=== PATIENT | male | born 1970 | race Caucasian/White ===

== ENCOUNTER 2021-10-31 09:10 | Observation (INO) | payer OTHER, SELFPAY ==
[2021-10-31] VITALS (10 sets, daily range): BP systolic 124–152; BP diastolic 91–106; PULSE 97–114; RESP 16–20; TEMP 36.4–37.1; O2SAT 94–98; BMI 26.2; BMI 24.2
--- NOTE | 2021-10-31 09:39 | CT_ITS ---
STUDY: CTA CHEST REASON FOR EXAM: Male, 51 years old. Dyspna, high risk PE RADIATION DOSAGE (If Supplied By Facility): CTDIvol = ( 11.42 ) mGy, DLP = ( 427.35 ) mGycm TECHNIQUE: The examination was performed with the intravenous administration of IV 100mL Isovue-370. Post-processing of the angiographic images was performed, with multiplanar reformation and 3D reconstruction. Individualized dose optimization techniques were used for this CT. COMPARISON: None. FINDINGS: There is evidence of a multiple bilateral pulmonary emboli involving the distal portions of both the right and left pulmonary arteries with a saddle embolus. Multiple emboli are seen in branches of both the right and upper lobe pulmonary arterial branches. Normal thoracic aorta and visualized great vessels. There is no demonstrated aortic dissection. Normal heart and pericardium. Normal mediastinum. Normal hilar regions. Normal visualized trachea and bronchi. The lungs are well expanded. Normal pulmonary parenchyma. Normal pleura. Normal chest wall structures. Normal osseous structures. Normal visualized upper abdomen. CT/CTA Chest W/WO Contrast IMPRESSION: Extensive bilateral pulmonary arterial emboli as described. This also evidence of a saddle embolus. Electronically Signed: Luis Burton MD at 12:06 EDT ,
--- NOTE | 2021-10-31 09:39 | EKG12_ITS ---
Test Reason : sob Blood Pressure : / mmHG Vent. Rate : 106 BPM Atrial Rate : 106 BPM P-R Int : 134 ms QRS Dur : 082 ms QT Int : 350 ms P-R-T Axes : 072 -20 040 degrees QTc Int : 464 ms Sinus tachycardia Otherwise normal ECG Confirmed by KAREEM RAMIREZ, ROSCOE ([id number]), purchasing expeditor MARTHA TOUSSAINT ([id number]) on 11/01/2021 11:34:55 AM Referred By: Confirmed By:ROSCOE SERNA MD
--- NOTE | 2021-10-31 09:41 | EDS_ITS ---
HPI History of Present Illness Chief Complaint: Shortness of Breath Informant: patient Narrative Narrative: Patient is a 51-year-old male who denies any past medical history but does not have any routine medical care presenting for worsening shortness of breath and dyspnea on exertion. Patient states he has been having some mild shortness of breath for the past month or so. He feels that it became worse over the past few days with increase humidity. 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 He had to sit down because of his symptoms. Denies any associated chest pain or pressure. Denies any nausea or vomiting. He also reports that about 2 months ago he had an episode of feeling like his heart was racing and his hands were numb. He states it occurred after he got a large amount of UV ink on his hands is not sure if that is related. Does have a history of tobacco use and actually quit 5 to 6 weeks ago. Denies any swelling of his legs. Denies any history of DVT or PE. Does not take any medications on a regular basis. Denies any other complaints or concerns at this time. Denies any orthopnea at night. States he sleeps like a rock. Denies any abnormal sweating. Has had an unintentional weight loss over the past few months. PFSH PFS Medical History Non-smoker Home Medications NK 10/31/21 [History Last Taken Unknown] Allergy/AdvReac Type Severity Reaction Status Date / Time No Known Allergies Allergy Verified 04/10/17 15:51 Social History Smoking Status: Former smoker ROS [facility] ED Constitutional Constitutional ED: Reports weight loss; Denies chills or fever(s) Eyes Eyes: Denies blurry vision or change in vision ENT ENT ED: Denies sore throat Cardiovascular Cardiovascular: Reports palpitations; Denies chest pain, orthopnea or paroxysmal nocturnal dyspnea Respiratory/Chest Respiratory/Chest: Reports dyspnea and dyspnea on exertion; Denies cough, orthopnea, paroxysmal nocturnal dyspnea or sputum Gastrointestinal Gastrointestinal: Denies abdominal pain, nausea or vomiting Genitourinary Genitourinary ED: Denies dysuria or hematuria Musculoskeletal Musculoskeletal: Denies arthralgias or myalgias Integumentary Denies rash Neurologic Neurologic: Reports weakness; Denies headache(s) or paresthesias Psychiatric Psychiatric: Denies anxiety EXAM Physical Exam Const Vital Signs: 10/31/21 09:10 10/31/21 10:17 10/31/21 11:10 Temperature 98.7 F Temperature Source Temporal Pulse Rate 114 H 97 Respiratory Rate 16 16 Respiratory Effort Non-Labored Short of Breath Respiratory Pattern Normal Blood Pressure 149/94 H Blood Pressure Mean 112 Pulse Ox 96 96 Oxygen Delivery Method Room Air Room Air Room Air 10/31/21 11:17 Temperature Temperature Source Pulse Rate 104 H Respiratory Rate 17 Respiratory Effort Respiratory Pattern Blood Pressure 146/106 H Blood Pressure Mean 119 Pulse Ox 95 Oxygen Delivery Method Room Air Positive well nourished and well developed General Appearance ED: well developed and NAD; Negative for pallor HEENT atraumatic Eyes PERRL and EOMs intact bilaterally Neck no lymphadenopathy, supple and no JVD Resp normal respiratory effort and clear to auscultation bilaterally Auscultation: Negative for rhonchi or wheezes Cardio regular rhythm and no murmurs Rate: tachycardic GI non-tender and non-distended Auscultation: normoactive bowel sounds Back/Spine no CVA tenderness Extremity normal to inspection General Extremety ED: Negative for edema or tenderness General Extremity: Negative for edema Neuro oriented x3 and CN's II-XII intact bilaterally Neuro Narrative: No focal deficits Motor Exam: Negative for general weakness Psych mental status grossly normal Skin no wounds General Skin Exam: Negative for jaundice or pallor MDM MDM MDM Narrative Medical decision making narrative: Patient is evaluated for dyspnea on exertion shortness of breath. He is tachycardic in the emergency room. Differentials concerning for pulmonary emboli, cardiac cause of his symptoms and less likely infectious. Patient has a normal CBC. BMP unremarkable. His hesitancy troponin is elevated at 262. He is not having acute ischemic changes on his EKG. His BNP is normal at 72 and his TSH is mildly elevated at 5.68. Patient is found to have extensive bilateral pulmonary emboli with a component of a saddle emboli. He is not requiring any supplemental oxygen and is hemodynamically stable. He is given IV fluids in the emergency room. Case is discussed with Dr. Fan, pulmonology, who feels that likely he is stable to stay at [facility]. Patient started on a heparin drip. I suspect his bump in his troponin is secondary to the PE and not primarily cardiac. There are no signs of heart strain on the CTA. Nain suárez will be admitted to the medicine service. I did add on venous duplex ultrasound looking for source of the PE. Patient then goes on to mention that he had a vieyra splint in his left leg about a month ago but he felt that that had improved. Venous duplex is positive for DVT in the left lower extremity. Lab Data Attestation: I reviewed the patient's lab results. Labs: Laboratory Results - last 24 hr 10/31/21 10/31/21 10/31/21 10:01 10:01 10:01 WBC 6.8 RBC 3.34 L Hgb 13.5 Hct 37.9 L MCV 113.5 H MCH 40.4 H MCHC 35.6 RDW Std Deviation 67.2 H RDW Coeff of Jefry 15.9 H Plt Count 207 MPV 9.9 Immature Gran % (Auto) 0.300 Neut % (Auto) 79.0 H Lymph % (Auto) 13.3 L [place] % (Auto) 5.6 Eos % (Auto) 1.2 Baso % (Auto) 0.6 Absolute Neuts (auto) 5.4 Absolute Lymphs (auto) 0.90 Nucleated RBC % 0 Platelet Estimate ADEQUATE RBC Morphology N CHROM Anisocytosis 1+ PT INR APTT Sodium 138 Potassium 3.9 Chloride 105 Carbon Dioxide 25.0 Anion Gap 8 BUN 19 H Creatinine 1.05 Estim Creat Clear Calc 103.33 Est GFR (MDRD) Af Amer 96 Est GFR (MDRD) Non-Af 79 BUN/Creatinine Ratio 18.1 Glucose 114 H Calcium 9.3 Troponin I High Sens 262 H* B-Natriuretic Peptide 72.1 TSH 5.68 H 10/31/21 11:23 WBC RBC Hgb Hct MCV MCH MCHC RDW Std Deviation RDW Coeff of Jefry Plt Count MPV Immature Gran % (Auto) Neut % (Auto) Lymph % (Auto) [place] % (Auto) Eos % (Auto) Baso % (Auto) Absolute Neuts (auto) Absolute Lymphs (auto) Nucleated RBC % Platelet Estimate RBC Morphology Anisocytosis PT 13.6 INR 1.1 APTT 28.8 Sodium Potassium Chloride Carbon Dioxide Anion Gap BUN Creatinine Estim Creat Clear Calc Est GFR (MDRD) Af Amer Est GFR (MDRD) Non-Af BUN/Creatinine Ratio Glucose Calcium Troponin I High Sens B-Natriuretic Peptide TSH Radiography Diagnostic Testing: Clinical Impression(s) from Imaging Studies Chest CTA 10/31/21 09:39 IMPRESSION: Extensive bilateral pulmonary arterial emboli as described. This also evidence of a saddle embolus. Electronically Signed: Luis Burton MD at 12:06 EDT , Venous Doppler Study 10/31/21 12:20 Interpretation Summary Acute deep vein thrombosis is noted in the left distal femoral vein. Acute deep vein thrombosis is noted in the left popliteal vein. Acute deep vein thrombosis is noted in the left tibio-peroneal trunk. Acute deep vein thrombosis is noted in the left posterior tibial vein. The remainder of the left lower extremity deep venous system is patent and compressible. Deep veins in the right lower extremity are patent and compressible. There is no evidence of right lower extremity deep vein thrombosis. Valvular competence appears intact within the proximal deep venous system on the right. The great saphenous veins are patent and compressible bilaterally. Pulsatile flow is noted in the deep venous system bilaterally, which may be indicative of elevated central venous pressure (i.e. congestive heart failure, pulmonary hypertension, etc.). Clinical correlation is advised. Ordering Physician: Kathleen Zambrano Performed By: Cyril Day, RVT Rhythm Strip Rhythm Strip: Sinus Tach Rate: 106 Ectopy: None EKG Initial EKG: Attestation: I personally reviewed and interpreted this EKG as follows: Interpretation: Sinus Tachycardia Comments: Sinus tachycardia at a rate of 106 Normal axis Normal intervals Normal ST segments Prior: No Prior Critical Care Time Critical Care Time: Yes Critical care time (excluding procedures): 30-74 minutes, Discussing w/Patient &/or Family/Water Service Dispatcher, Discussing w/Consultants and Arranging Admission or Transfer Discharge Plan Dx/Rx/DC Orders Clinical Impression: Pulmonary embolism, Acute saddle pulmonary embolism, Non-ST elevation MN (NSTEMI), Tachycardia, Left leg DVT Disposition Disposition: Acute Care [facility]
[2021-10-31 10:18] LABS: Absolute Neutrophil Count 5.4 X10^3/uL (2.0-7.7); Basophil# 0.04 X10^3/uL; Basophil% 0.6 % (0-1); Eosinophil# 0.08 X10^3/uL; Eosinophils% 1.2 % (0-5); Hematocrit 37.9 % (40-54); Hemoglobin 13.5 g/dL (13.0-16.5); Lymphocyte % 13.3 % (19-41); Mean Corp Hgb Conc 35.6 g/dL (32-36); Mean Corpuscular Hgb 40.4 pg (27.0-32.0); Mean Corpuscular Volume 113.5 fL (80-94); Mean Platelet Vol. 9.9 fl (6.2-12.0); Monocyte# 0.38 X10^3/uL; Monocyte% 5.6 % (0-10); NRBC Flagged by Analyzer 0 % (0-5); Neutrophil # 5.36 X10^3/uL (2.7-7.7); POSITIVE MORPHOLOGY YES; Platelet Count 207 K/mm3 (150-450); RBC Distribution Width CV 15.9 % (11.6-14.6); RBC Distribution Width SD 67.2 fl (35.1-43.9); Red Blood Count 3.34 M/mm3 (4.6-6.2); White Blood Count 6.8 K/mm3 (4.4-11.0)
[2021-10-31] MEDS: 0.9% Normal Saline 1,000 ML 1000 ML IV (10:18)
[2021-10-31 10:26] LABS: Differential Indicated SCAN CRITERIA MET
[2021-10-31 10:42] LABS: Anion Gap 8 (5-15); BUN 19 mg/dL (7-18); BUN/Creat Ratio 18.1 RATIO (10-20); Calcium,Total 9.3 mg/dL (8.5-10.1); Chloride 105 mmol/L (98-107); Creatinine, Serum 1.05 mg/dL (0.70-1.30); EST Glomerular Filtration Rate 79 mL/min (>60); Est Glom Filt Rate - Afr Amer 96 mL/min (>60); Estimated Creatinine Clearance 103.33 ml/min; Glucose 114 mg/dL (74-106); Potassium 3.9 mmol/L (3.5-5.1); Sodium Level 138 mmol/L (136-145); Thyroid Stim Hormone (TSH) 5.68 uIU/mL (0.358-3.74); Troponin-I HS 262 pg/mL (3.0-78.0)
[2021-10-31] MEDS: Aspirin 325 MG Tablet PO (11:17)
[2021-10-31 11:21] LABS: Anisocytosis 1+; Platelet Estimate ADEQUATE (ADEQ); Red Cell Morphology N CHROM NORMAL (NORM C&C)
[2021-10-31] MEDS: Heparin Injection (Vial) 5,000 UNIT/ML VIAL 4000 UNIT IV (11:32)
[2021-10-31] MEDS: HEPARIN/D5w 25,000 UNITS 25,000 UNITS/250 ML IV.SOLN. 10 UNITS CONT INF (11:33)
[2021-10-31 11:40] LABS: International Normalized Ratio 1.1; Partial Thromboplast Time 28.8 Seconds (24.1-36.2); Prothrombin Time (Protime)PT. 13.6 SECONDS (11.7-14.9)
[2021-10-31 12:02] LABS: BNP,B-Type NATRIURETIC PEPTIDE 72.1 pg/mL (0-100)
--- NOTE | 2021-10-31 12:20 | VDLE_ITS ---
Reason For Study: PE RIGHT LEFT GSV is normal. GSV is normal. CFV is compressible, spontaneous, competent CFV is compressible, spontaneous, competent, and demonstrates pulsatile venous flow. and demonstrates pulsatile venous flow. FV is compressible, spontaneous, competent LT PerV is compressible. and demonstrates pulsatile venous flow. Prox and mid FV are compressible with POP V is compressible, spontaneous, pulsatile venous flow. Distal FV is dilated competent and demonstrates pulsatile venous and noncompressible. DVT appears loosley flow. attached, T/P Trunk is compressible. POP V, T/P Trunk, and PTV are dilated and PTV is compressible. noncompressible. RT PerV is compressible. Procedure This is a venous duplex using B-mode, color flow and spectral Doppler. Exam performed portable in ED. The exam was diagnostic. A preliminary report was called and/or faxed to Dr. Zambrano. VL/Venous Duplex US - [place] Extrem Interpretation Summary Acute deep vein thrombosis is noted in the left distal femoral vein. Acute deep vein thrombosis is noted in the left popliteal vein. Acute deep vein thrombosis is noted in the le ft tibio-peroneal trunk. Acute deep vein thrombosis is noted in the left posterior tibial vein. T he remainder of the left lower extremity deep venous system is patent and compressible. Deep veins in the right lower extremity are patent and compressible. There is no evidence of right lower extr emity deep vein thrombosis. Valvular competence appears intact within the proximal deep venous system on the right. The great saphenous veins are patent and compressible bilaterally. Pulsatile fl ow is noted in the deep venous system bilaterally, which may be indicative of elevated central dhiraj ous pressure (i.e. congestive heart failure, pulmonary hypertension, etc.). Clinical correlation i s advised. Ordering Physician: Kathleen Zambrano Performed By: Barb, Cyril, RVT
--- NOTE | 2021-10-31 12:50 | HP.PCM.HOS_ITS ---
HPI - General General Date of Admission: 10/31/21 Date of Service: 10/31/21 Chief Complaint: shortness of breath HPI Narrative ASHLEY KELLEY, is a 51 M with a PMh as outlined who presents via the ED with a PMh as outlined who was admitted via the ED on 10/31/2021 with a complaint of worsening shortness of breath which worsened with exertion. This had been going on for about a month, but worsened over the last few days, until today when he ws at work and became acutely short of breath, weak and dizzy. He had to stop working, and came in to the ED. He denied any chest pain or pressure. He also denied any nausea or vomiting. He denied any history fo DVT or PE, and denied any lower extremity swelling. He subsequently admitted to having some vieyra splints about a month ago. Review of systems is otherwise negative. Vitals in the ED were BP of 146/106, WA of 106, RR of 17 and he was saturating at 955 on room air. CBC showed Hb of 13.5, wbc of 6.8, platelets of 207 and INR is 1.1. Chemistry showed sodium of 138, potassium of 3.9 and bicarb of 25. CR is 1.05. Troponin is 262. TSH is 5.68. CTA showed extensive bilateral pulmonary art erial emboli, with evidence of saddle emboli. [facility] Medical History Non-smoker Home Medications NK 10/31/21 [History Last Taken Unknown] Allergy/AdvReac Type Severity Reaction Status Date / Time No Known Allergies Allergy Verified 04/10/17 15:51 Social History Smoking Status: Former smoker ROS Constitutional Constitutional: Denies anorexia, chills, fatigue, fever(s), malaise or weakness Eyes Eyes: Denies change in vision ENT HEENT: Denies dysphagia, headache(s) or nasal discharge Cardiovascular Cardiovascular: Reports dyspnea on exertion; Denies chest pain, edema, lightheadedness, orthopnea, palpitations, paroxysmal nocturnal dyspnea, rapid heart rate or syncope Respiratory/Chest Respiratory/Chest: Reports dyspnea, shortness of breath at rest and shortness of breath with exertion; Denies cough or wheezing Gastrointestinal Gastrointestinal: Denies abdominal pain, constipation, nausea or vomiting Genitourinary Genitourinary: Denies dysuria Musculoskeletal Musculoskeletal: Denies back pain or joint pain Neurologic Neurologic: Denies confusion, dizziness, focal weakness, headache(s), numbness, seizures or syncope Psychiatric Psychiatric: Denies anxiety or depression Vital Signs Vital Signs Vital Signs: 10/31/21 09:10 10/31/21 10:17 10/31/21 11:10 Temperature 98.7 F Temperature Source Temporal Pulse Rate 114 H 97 Respiratory Rate 16 16 Respiratory Effort Non-Labored Short of Breath Respiratory Pattern Normal Blood Pressure 149/94 H Blood Pressure Mean 112 Pulse Ox 96 96 Oxygen Delivery Method Room Air Room Air Room Air 10/31/21 11:17 Temperature Temperature Source Pulse Rate 104 H Respiratory Rate 17 Respiratory Effort Respiratory Pattern Blood Pressure 146/106 H Blood Pressure Mean 119 Pulse Ox 95 Oxygen Delivery Method Room Air Weight Weight: 215 lb Body Mass Index (BMI) 26.2 Physical Exam Const alert, oriented x3 and no apparent distress HEENT normocephalic, head/scalp atraumatic, hearing grossly normal bilaterally and moist oral mucous membranes Mouth: oral and palatal mucosa normal Eyes PERRL and EOMs intact bilaterally Neck supple Resp normal respiratory effort, no retractions, no use of accessory muscles and clear to auscultation bilaterally Cardio regular rate, regular rhythm, S1 normal heart sound, S2 normal heart sound and no murmurs GI normal to inspection, nondistended, normoactive bowel sounds, soft to palpation, non-tender and non-distended Extremity normal to inspection, full ROM and no clubbing, cyanosis or edema Neuro oriented x3, CN's II-XII intact bilaterally and moves all extremities Sensorium / Orientation: awake and alert Psych affect normal Results Lab / Micro Data Result Diagrams: 10/31/21 10:01 10/31/21 10:01 Labs: Laboratory Results - last 24 hr 10/31/21 10:01: WBC 6.8, RBC 3.34 L, Hgb 13.5, Hct 37.9 L, MCV 113.5 H, MCH 40.4 H, MCHC 35.6, RDW Std Deviation 67.2 H, RDW Coeff of Jefry 15.9 H, Plt Count 207, MPV 9.9, Immature Gran % (Auto) 0.300, Neut % (Auto) 79.0 H, Lymph % (Auto) 13.3 L, [place] % (Auto) 5.6, Eos % (Auto) 1.2, Baso % (Auto) 0.6, Absolute Neuts (auto) 5.4, Absolute Lymphs (auto) 0.90, Nucleated RBC % 0, Platelet Estimate ADEQUATE, RBC Morphology N CHROM, Anisocytosis 1+ 10/31/21 10:01: Sodium 138, Potassium 3.9, Chloride 105, Carbon Dioxide 25.0, Anion Gap 8, BUN 19 H, Creatinine 1.05, Estim Creat Clear Calc 103.33, Est GFR (MDRD) Af Amer 96, Est GFR (MDRD) Non-Af 79, BUN/Creatinine Ratio 18.1, Glucose 114 H, Calcium 9.3, Troponin I High Sens 262 H*, TSH 5.68 H 10/31/21 10:01: B-Natriuretic Peptide 72.1 10/31/21 11:23: PT 13.6, INR 1.1, APTT 28.8 Radiology Impression Chest CTA 10/31/21 09:39 IMPRESSION: Extensive bilateral pulmonary arterial emboli as described. This also evidence of a saddle embolus. Electronically Signed: Luis Burton MD at 12:06 EDT , Assessment & Plan Assessment/Plan (1) Pulmonary embolism: PLAN: Plan #Submassive Bilateral saddle PE * admit to PCU * patient is tachycardic, but not tachypneic. He is on room air * initial troponin is 262; will cucle. BMP not elevated. * started on heparin drip; will continue * will order 2D echo * consult pulmonology * duplex of LE showed DVT * says he has lost ~ 20 pounds unintentionally. Hasnt had a screening colo noscopy. Counseled that he will have to follow up with his PCP for age appropriate screening in light of his extensive PE. * #DVT: management as above #Elevated TSH * TSH elevated at 5.68. No known history of hypothyroidism * will check free T4 DVT prophylaxis; not indicated as on heparin drip for PE Code status: full code * Patient counseled extensively about different types of CODE STATUS including full code, DNR CCA and DNR CCA. Patient elects to be full code. Total [id number] time 17 minutes. * Upon my entry into the ED room to see patient and my introducing myself, patient stated that he did not want me to take care of him and requested for another doctor. I asked if there was a particular reason why and he stated that his mother had been under my care for management for COVID recently and he felt there was a huge mixup in her care and so did not want me to take care of him. I explained to patient that the hospitalist took turns to admit the patient's and so it would not be fair for me to give my colleagues another admission. I suggested to patient that I evaluated him for today and do the history and physical and from tomorrow one of my hospitalist colleagues will hopefully take over his care. Patient was agreeable to the suggestion and is okay with being seen by me today, for another hospitalist to take over from tomorrow. I spoke to Dr. Garcia who will assume the care of the patient from tomorrow 11/01/2021. Charges/Coding Visit Charges Inpatient E&M: 80645 Init Hosp L3 Procedures Hospitalists Procedures: 94157 Advncd Care Plan 30 Min
--- NOTE | 2021-10-31 14:25 | ECHOD_ITS ---
Reason For Study: EMBOLI Procedure This was a 2D Doppler, Color Flow transthoracic echocardiogram. Exam performed portable in patient room. Left Ventricle Normal LV size. Moderate eccentric left ventricular hypertrophy. D shaped septum in systole and diastole. Left ventricular systolic function is normal. The estimated ejection fraction is 55 %. No regional wall motion abnormalities noted. Right Ventricle Mildly dilated right ventricle. Mild to moderate global right ventricular systolic dysfunction. Aortic Valve Trisinus/trileaflet aortic valve. Great Vessels Normal aortic root. The pulmonary artery is normal size. Normal inferior vena cava. Pericardium/Pleural No pericardial effusion. MMode/2D Measurements & Calculations LVIDd: 4.2 cm IVSd: 1.6 cm Ao root diam: 3.4 cm LVIDs: 2.8 cm LVPWd: 0.93 cm RVDd: 4.4 cm FS: 34.7 % LAV(MOD-bp): 60.1 ml LVAd ap4: 29.5 cm2 LVAd ap2: 35.0 cm2 LAV(MOD-bp) Indexed: 26.8 ml/m2 LVLd ap4: 8.1 cm LVLd ap2: 9.1 cm LAV(MOD-sp2): 60.3 ml EDV(MOD-sp4): 89.8 ml EDV(MOD-sp2): 112.5 ml LAV(MOD-sp4): 62.3 ml EDV(sp4-el): 91.9 ml EDV(sp2-el): 114.9 ml LVAs ap4: 18.2 cm2 LVAs ap2: 20.6 cm2 LVLs ap4: 7.1 cm LVLs ap2: 7.5 cm ESV(MOD-sp4): 38.8 ml ESV(MOD-sp2): 50.1 ml ESV(sp4-el): 39.5 ml ESV(sp2-el): 48.3 ml EF(MOD-sp4): 56.8 % EF(MOD-sp2): 55.4 % EF(sp4-el): 57.1 % SV(MOD-sp4): 51.0 ml SV(MOD-sp2): 62.4 ml SV(sp4-el): 52.4 ml LA A4 area: 20.0 cm2 LA dimension(2D): 3.5 cm RA A4 area: 21.8 cm2 Doppler Measurements & Calculations MV E max manuelito: 43.4 cm/sec Lat Peak E' Manuelito: 12.9 cm/sec Med Peak E' Manuelito: 7.3 cm/sec MV A max manuelito: 66.3 cm/sec E/E' lat: 3.4 E/E' med: 6.0 MV E/A: 0.65 Ao V2 max: 96.2 cm/sec LV V1 max: 85.8 cm/sec TR max manuelito: 283.1 cm/sec Ao max P.7 mmHg LV V1 max P.9 mmHg TR max P.1 mmHg ECHO/Echo Complete Interpretation Summary Normal LV size. Moderate eccentric left ventricular hypertrophy. Left ventricular systolic function is normal. The estimated ejection fraction is 55 %. D shaped septum in systole and diastole. Mildly dilated right ventricle. Ordering Physician: Ifrah Colmenares Referring Physician: JAILENE PCP GIVEN Performed By: Mariaa Dale RCS
[2021-10-31 15:03] LABS: T4 Free Direct 0.96 ng/dL (0.76-1.46)
[2021-10-31 15:36] LABS: Troponin-I HS 1055 pg/mL (3.0-78.0)
[2021-10-31 17:21] LABS: Troponin-I HS 1232 pg/mL (3.0-78.0)
[2021-10-31 17:57] LABS: Partial Thromboplast Time 39.2 Seconds (24.1-36.2)
[2021-10-31] MEDS: Heparin Injection (Vial) 5,000 UNIT/ML VIAL IV (18:52)
[2021-11-01 01:29] LABS: Partial Thromboplast Time 46.4 Seconds (24.1-36.2)
[2021-11-01 01:52] VITALS: BP 116/72; PULSE 83; RESP 18; TEMP 36.6; O2SAT 96
[2021-11-01 02:59] VITALS: PULSE 80
[2021-11-01 06:21] VITALS: BP 109/92; PULSE 80; RESP 18; TEMP 36.4; O2SAT 99
[2021-11-01 07:00] VITALS: PULSE 76
[2021-11-01 07:17] VITALS: O2SAT 96
[2021-11-01] MEDS: HEPARIN/D5w 25,000 UNITS 25,000 UNITS/250 ML IV.SOLN. 13 UNITS CONT INF (08:06)
--- NOTE | 2021-11-01 09:01 | NURSING ---
This RN called lab at 0836 to check to see if they had drawn pt's timed APTT that was due at 0751 as it was not in the computer yet. Lab personnel on phone stated they would call electric power line repairer to see if it was drawn. This RN called the lab again at 0853 to see if they had drawn it yet. Lab personnel stated that they recieved the tube in the lab and it just needed to be spun. Heparin gtt continued at 13ml/hr while awaiting lab result.
[2021-11-01 09:04] LABS: Absolute Lymphocyte Count 1.42 X10^3/uL (0.83-4.51); Absolute Neutrophil Count 3.3 X10^3/uL (2.0-7.7); Basophil# 0.05 X10^3/uL; Basophil% 0.9 % (0-1); Eosinophil# 0.21 X10^3/uL; Eosinophils% 3.9 % (0-5); Hematocrit 35.8 % (40-54); Hemoglobin 12.5 g/dL (13.0-16.5); Lymphocyte # 1.42 X10^3/ul (0.83-4.51); Lymphocyte % 26.6 % (19-41); Mean Corp Hgb Conc 34.9 g/dL (32-36); Mean Corpuscular Hgb 39.8 pg (27.0-32.0); Mean Platelet Vol. 10.3 fl (6.2-12.0); Monocyte# 0.36 X10^3/uL; Monocyte% 6.7 % (0-10); NRBC Flagged by Analyzer 0 % (0-5); Neutrophil # 3.26 X10^3/uL (2.7-7.7); Neutrophil % 61.2 % (47-70); POSITIVE MORPHOLOGY YES; Platelet Count 219 K/mm3 (150-450); RBC Distribution Width SD 67.2 fl (35.1-43.9); Red Blood Count 3.14 M/mm3 (4.6-6.2); White Blood Count 5.3 K/mm3 (4.4-11.0)
[2021-11-01 09:05] LABS: Differential Indicated SCAN CRITERIA MET
[2021-11-01 09:16] LABS: Partial Thromboplast Time 44.7 Seconds (24.1-36.2)
--- NOTE | 2021-11-01 09:24 | CON.PCM.CC_ITS ---
Assessment & Plan Assessment/Plan (1) Pulmonary embolism: PLAN: Plan RECOMMENDATIONS: 1. Okay to transition from heparin to either Xarelto or Eliquis. 2. Perform walking oximetry study prior to consideration for discharge home. 3. The patient should follow-up in the pulmonary medicine clinic after discharge. IMPRESSIONS: 1. Bilateral pulmonary emboli The patient initially presented to the hospital with progressive dyspnea and was found to have bilateral pulmonary emboli, including saddle embolism. However, the patient has remained hemodynamically stable on room air since his admission. His echocardiogram did reveal some mild to moderate RV dysfunction. At this time, given the patient's clinical stability, he can be transition from heparin to either Xarelto or Eliquis. The etiology for the patient's VTE is unclear. No precipitating etiology has been identified. The patient would likely benefit from outpatient referral to hematology. Regardless, the patient needs to be on his systemic anticoagulation for at least 3 months without interruption. Recommend follow-up echocardiogram in 2 to 3 months. This note was generated with [employer] dictation software. It may contain incorrect words, spelling, and punctuation that were not noted in checking the note before signing. HPI Consult Data Date of Consult: 11/01/21 HPI Narrative Reason for Consultation: Pulmonary emboli HPI Narrative: The patient is a 51-year-old male, with a history as outlined below, who presented to the emergency department on October 31 with a history of 1 month of progressively worsening shortness of breath. No precipitating or inciting factor was able to be identified. The patient has an approximate 1-pack-year smoking history, having quit completely previously. 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 He is active and on his feet most of the day. He denies any personal history of venous thromboembolic disease or malignancy. He has not traveled anywhere recently. On presentation to the emergency department, the patient was noted to be afebrile and hemodynamically stable. He was a, nevertheless, tachycardic with a heart rate of 114. Initial laboratory evaluation revealed no evidence of a leukocytosis. Coagulation profile was unremarkable. Chemistry profile was unrevealing. Troponins were increased at 262. BNP was within normal limits. A CTA chest was obtained which revealed extensive bilateral pulmonary emboli, including saddle embolus. Follow-up lower extremity Doppler study revealed DVT in the left lower extremity. Surface echocardiogram demonstrated moderate concentric LVH with a mildly dilated LV with mild to moderate global RV systolic dysfunction. [facility] Medical History Non-smoker Home Medications apixaban 5 mg tablet (Eliquis) 10 mg PO BID #60 tabs 11/01/21 [Rx Last Taken Unknown] Allergy/AdvReac Type Severity Reaction Status Date / Time No Known Allergies Allergy Verified 04/10/17 15:51 Social History Smoking Status: Former smoker ROS Constitutional Constitutional: Denies chills, fatigue or fever(s) Eyes Eyes: Denies blurry vision or change in vision ENT HEENT: Denies dizziness, dysphagia or epistaxis Cardiovascular Cardiovascular: Reports dyspnea; Denies chest pain Respiratory/Chest Respiratory/Chest: Reports dyspnea; Denies chest tightness or cough Gastrointestinal Gastrointestinal: Denies abdominal pain, diarrhea, nausea or vomiting Genitourinary Genitourinary: Denies difficulty urinating Musculoskeletal Musculoskeletal: Denies arthralgias, back pain or joint pain Integumentary Integumentary: Denies lesions, rash or skin ulcer Neurologic Neurologic: Denies abnormal gait or abnormal speech Psychiatric Psychiatric: Denies anxiety or depression Endocrine Endocrinology: Denies fatigue or polydipsia Hematologic/Lymphatic Hematologic/Lymphatic: Denies easy bleeding or easy bruising Physical Exam Const alert, oriented x3 and no apparent distress General Appearance: cooperative HEENT normocephalic, head/scalp atraumatic and moist oral mucous membranes Eyes PERRL, EOMs intact bilaterally and conjunctivae normal Neck supple General: trachea midline Chest inspection of chest normal Resp normal respiratory effort Auscultation: Negative for rales, rhonchi or wheezes Cardio regular rate and regular rhythm GI normal to inspection, nondistended, normoactive bowel sounds Extremity no clubbing, cyanosis or edema Skin no rashes or lesions noted Neuro CN's II-XII intact bilaterally, moves all extremities and no focal motor deficits Psych cooperative and affect normal Lab / Micro Data Result Diagrams: 11/01/21 07:50 11/01/21 07:50 Labs: Laboratory Results - last 24 hr 10/31/21 10:01: WBC 6.8, RBC 3.34 L, Hgb 13.5, Hct 37.9 L, MCV 113.5 H, MCH 40.4 H, MCHC 35.6, RDW Std Deviation 67.2 H, RDW Coeff of Jefry 15.9 H, Plt Count 207, MPV 9.9, Immature Gran % (Auto) 0.300, Neut % (Auto) 79.0 H, Lymph % (Auto) 13.3 L, [place] % (Auto) 5.6, Eos % (Auto) 1.2, Baso % (Auto) 0.6, Absolute Neuts (auto) 5.4, Absolute Lymphs (auto) 0.90, Nucleated RBC % 0, Platelet Estimate ADEQUATE, RBC Morphology N CHROM, Anisocytosis 1+ 10/31/21 10:01: Sodium 138, Potassium 3.9, Chloride 105, Carbon Dioxide 25.0, Anion Gap 8, BUN 19 H, Creatinine 1.05, Estim Creat Clear Calc 103.33, Est GFR (MDRD) Af Amer 96, Est GFR (MDRD) Non-Af 79, BUN/Creatinine Ratio 18.1, Glucose 114 H, Calcium 9.3, Troponin I High Sens 262 H*, TSH 5.68 H 10/31/21 10:01: B-Natriuretic Peptide 72.1 10/31/21 10:01: Free T4 0.96 10/31/21 11:23: PT 13.6, INR 1.1, APTT 28.8 10/31/21 15:00: Troponin I High Sens 1055 H* 10/31/21 16:35: Troponin I High Sens 1232 H* 10/31/21 17:35: APTT 39.2 H 11/01/21 01:06: APTT 46.4 H 11/01/21 07:50: WBC 5.3, RBC 3.14 L, Hgb 12.5 L, Hct 35.8 L, MCV 114.0 H, MCH 39.8 H, MCHC 34.9, RDW Std Deviation 67.2 H, RDW Coeff of Jefry 16.0 H, Plt Count 219, MPV 10.3, Immature Gran % (Auto) 0.700, Neut % (Auto) 61.2, Lymph % (Auto) 26.6, [place] % (Auto) 6.7, Eos % (Auto) 3.9, Baso % (Auto) 0.9, Absolute Neuts (auto) 3.3, Absolute Lymphs (auto) 1.42, Nucleated RBC % 0 07/26/22 07:50: APTT 44.7 H Rhythm Strip Rhythm Strip: Sinus Tach Rate: 106 Ectopy: None Radiology Impression Chest CTA 10/31/21 09:39 IMPRESSION: Extensive bilateral pulmonary arterial emboli as described. This also evidence of a saddle embolus. Electronically Signed: Luis Burton MD at 12:06 EDT , Venous Doppler Study 10/31/21 12:20 Interpretation Summary Acute deep vein thrombosis is noted in the left distal femoral vein. Acute deep vein thrombosis is noted in the left popliteal vein. Acute deep vein thrombosis is noted in the left tibio-peroneal trunk. Acute deep vein thrombosis is noted in the left posterior tibial vein. The remainder of the left lower extremity deep venous system is patent and compressible. Deep veins in the right lower extremity are patent and compressible. There is no evidence of right lower extremity deep vein thrombosis. Valvular competence appears intact within the proximal deep venous system on the right. The great saphenous veins are patent and compressible bilaterally. Pulsatile flow is noted in the deep venous system bilaterally, which may be indicative of elevated central venous pressure (i.e. congestive heart failure, pulmonary hypertension, etc.). Clinical correlation is advised. Ordering Physician: Kathleen Zambrano Performed By: Cyril Day, RVT Echocardiogram 10/31/21 14:25 Interpretation Summary Normal LV size. Moderate eccentric left ventricular hypertrophy. Left ventricular systolic function is normal. The estimated ejection fraction is 55 %. D shaped septum in systole and diastole. Mildly dilated right ventricle. Ordering Physician: Ifrah Colmenares Referring Physician: NO PCP GIVEN Performed By: Mariaa Dale RCS Charges/Coding Visit Charges Inpatient E&M: 83232 Init Hosp L3
[2021-11-01 09:26] LABS: Anisocytosis 1+
[2021-11-01 09:41] LABS: Anion Gap 4 (5-15); BUN 14 mg/dL (7-18); BUN/Creat Ratio 14.5 RATIO (10-20); Calcium,Total 8.7 mg/dL (8.5-10.1); Chloride 109 mmol/L (98-107); Creatinine, Serum 0.97 mg/dL (0.70-1.30); EST Glomerular Filtration Rate 87 mL/min (>60); Est Glom Filt Rate - Afr Amer 106 mL/min (>60); Estimated Creatinine Clearance 111.86 ml/min; Glucose 110 mg/dL (74-106); Potassium 4.1 mmol/L (3.5-5.1); Sodium Level 138 mmol/L (136-145)
[2021-11-01 10:53] VITALS: BP 140/94; PULSE 82; RESP 16; TEMP 36.7; O2SAT 97
--- NOTE | 2021-11-01 10:57 | DCINST_ITS ---
Discharge Instructions Diet Discharge Diet: No restrictions Activity Discharge Activity: Return to Normal Activity Return to work on:: 11/07/21 Weight Bearing Status: Full weight bearing Additional Activity Instructions:: Be careful operating heavy machinery or using powered saws Follow Up Care Test Results: Test results from this visit will be discussed in further detail at your follow- up appointment, if applicable. Discharge Plan Admission Admit Date/Time: 10/31/21 13:07 Primary Reason for Your Visit: Pulmonary embolism Attending Provider: John Garcia Primary Care Provider: Care Physician,No Primary Consulting Providers: Conner Metzger ; Silvio Fan ; Demetira Mares NP ; Ifrah Colmenares Instructions Additional Instructions / Restrictions: I recommend you establish care with a primary care physician and make an appointment within the next 1 month Do not take any ibuprofen or Aleve while you are on Eliquis Discharge Orders/Prescriptions Prescriptions: New Eliquis 5 mg tablet 10 mg PO BID Qty: 60 0RF Rx Instructions: 10 mg twice a day for 1 week, then 5 mg twice a day thereafter, start first dose tonight Referrals / Follow Up: Silvio Fan DO [Med Staff - Active Staff] - See Referral Note (In 2 weeks, call for an appointment) Care Physician,No Primary [Primary Care Provider] - Disposition Disposition (needs filled in before D/C Order can be placed): Home, Self Care
--- NOTE | 2021-11-01 11:26 | PHA.DC.MC ---
Pharmacy Service has performed discharge medication reconciliation and counseling for this patient. 1. APIXABAN 10MG PO BID X 7 DAYS, THEN 5MG PO BID THEREAFTER The patient's discharge medication list was reviewed for discrepancies and discrepancies were resolved. Home Medications apixaban 5 mg tablet (Eliquis) 10 mg PO BID #60 tabs 11/01/21 The patient was counseled on the following discharge medications and changes in medications for homegoing were reviewed. The Reason for Use, instructions for use, and potential side effects were reviewed for all new medications. The patient's questions regarding all of their medications were answered. The patient was able to verbally demonstrate an understanding of their discharge medications.
[2021-11-01] MEDS: APIXABAN 5 MG TABLET 10 MG PO (11:28)
[2021-11-01] MEDS: 0.9% Saline Lock 10 ML Syringe IV (11:29)
--- NOTE | 2021-11-01 11:38 | CASEMGMT ---
TALI QUARLES assessment: Face to Face with patient for initial transition planning/care coordination assessment. TALI QUARLES introduced self and role at [facility], pt voices understanding and consents to assessment. Pt is sitting up in bed in no distress on room air. Pt is A/Ox4 and answers all questions appropriately.? Care providers, pharmacy,?and demographics verified/updated. ? Presentation: Pt c/o intermittent SOB for last month or so Admitting dx: Submassive bilat PE, NSTEMI PCP: None, list provided and pt states would like to see Dr. Alexis Fan Specialists: None Preferred Pharmacy: [facility]-pt to be sent home on Eliquis and 30 day free trial card applied in [facility] pharmacy. Pt also provided with Eliquis $10 co-pay card w/ instructions, voices understanding. Pt aware that he will need PCP to write for Eliquis for next month and states plans to get appt set up. Insurance: [employer] Prescription Benefit:? [employer] Living Will/HPOA: Pt does not have LW/HPOA and declines AD info, stating 'My sister will take care of that.' LNOK: Isabelle Eng, sister Living Arrangements: Pt lives alone in split level home and states no concerns at home. Pt states is independent with ADL's. Transportation: Pt drives self and states no transportation concerns. DME/HHC: Pt has no current DME or need for any DME. Pt states no hx of HHC or SNF in past. Pt states no concerns with going home at time of discharge. 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 Pt states does not smoke cigarettes but does occasionally drink ETOH. Pt states no further concerns/needs. CM to follow for any further discharge planning/needs. Advised pt to ask for CM if any further questions/concerns/needs arise, voices understanding. Pt Goal: Home ? Plan[place]
--- NOTE | 2021-11-01 12:34 | PCM.DC.SUM ---
Providers Date of Admission: 10/31/21 Date of Discharge: 11/01/21 Primary Care Physician: Dr. Alexis Fan, DO Consultations 10/31/21 15:49 Consult: Telegraph Printer Mechanic / Pulmonary Medicine Routine Consulting Provider: [facility] Reason for Consult: bilateral PE EMERGENT Consult: No MD Notified: Yes Date Notified: 10/31/21 Time Notified: 15:49 Method of Notification: Text Reason For Visit: SUBMASSIVE BILATERAL PE Diagnosis Discharge Diagnosis (1) Pulmonary embolism: Status: Acute Code(s): I26.99 - Other pulmonary embolism without acute cor pulmonale Plan 1. Acute saddle pulmonary embolus #2 left leg venous thromboembolism Medications at Discharge Home Medications apixaban 5 mg tablet (Eliquis) 10 mg PO BID #60 tabs 11/01/21 Hospital Course Operations None Procedures 2-D Echocardiogram Summary of Care Provided Minutes Spent on Discharge: 31 Hospital Course: This 51-year-old white male was seen in the emergency room at [facility] with a chief complaint of shortness of breath on exertion, he stated the symptoms have been going on for approximately a month but they became worse over the past few days with increased humidity. Work-up in the emergency room included a CTA of the chest which showed the patient to have extensive bilateral pulmonary emboli with a component of saddle emboli. Patient was not hypoxic however and he was hemodynamically stable. Pulmonary medicine was consulted by phone, they recommended starting the patient on a heparin drip and admitting him into the hospital. A venous duplex ultrasound was carried out on the legs, there was noted to be a DVT in the left lower extremity. Patient was admitted to PCU, he underwent an echocardiogram which showed no evidence of pulmonary hypertension or heart strain, he was also seen in consultation by pulmonary medicine. Patient remained hemodynamically stable and did not require any supplemental oxygen during his admission. On 11/01/2021, patient was seen and examined: On examination he appeared in good health and spirits. Vital signs as documented. Skin warm and dry and without overt rashes. Neck without JVD, neck was supple, trachea midline, thyroid was normal. Lungs clear bilaterally, normal air movement was noted. Heart exam notable for regular rhythm, normal sounds and absence of murmurs, rubs or gallops. Abdomen unremarkable and without evidence of organomegaly, masses, or abdominal aortic enlargement. Bowel sounds are present, abdomen is not distended. Extremities nonedematous, no cyanosis was noted, no clubbing was noted. Neuro: Cranial nerves II through XII are grossly intact, no focal motor deficits were noted, sensation to light touch and pinprick intact, motor exam 5/5 throughout. Psych: Patient is alert and oriented x3, he does not appear anxious or depressed, he does not appear agitated. Patient appears stable for discharge on 11/01/2021. Weight / BMI Weight Weight: 90.2 kg Body Mass Index (BMI) 24.2 ABG / Lab / Microbiology Data Result Diagrams: 11/01/21 07:50 11/01/21 07:50 Laboratory: Laboratory Results - last 24 hr 10/31/21 10:01: Free T4 0.96 10/31/21 15:00: Troponin I High Sens 1055 H* 10/31/21 16:35: Troponin I High Sens 1232 H* 10/31/21 17:35: APTT 39.2 H 11/01/21 01:06: APTT 46.4 H 11/01/21 07:50: WBC 5.3, RBC 3.14 L, Hgb 12.5 L, Hct 35.8 L, MCV 114.0 H, MCH 39.8 H, MCHC 34.9, RDW Std Deviation 67.2 H, RDW Coeff of Jefry 16.0 H, Plt Count 219, MPV 10.3, Immature Gran % (Auto) 0.700, Neut % (Auto) 61.2, Lymph % (Auto) 26.6, [place] % (Auto) 6.7, Eos % (Auto) 3.9, Baso % (Auto) 0.9, Absolute Neuts (auto) 3.3, Absolute Lymphs (auto) 1.42, Nucleated RBC % 0, Anisocytosis 1+ 11/01/21 07:50: Sodium 138, Potassium 4.1, Chloride 109 H, Carbon Dioxide 25.0, Anion Gap 4 L, BUN 14, Creatinine 0.97, Estim Creat Clear Calc 111.86, Est GFR (MDRD) Af Amer 106, Est GFR (MDRD) Non-Af 87, BUN/Creatinine Ratio 14.5, Glucose 110 H, Calcium 8.7 11/01/21 07:50: APTT 44.7 H Radiography Diagnostic Testing: Radiology Impression Venous Doppler Study 10/31/21 12:20 Interpretation Summary Acute deep vein thrombosis is noted in the left distal femoral vein. Acute deep vein thrombosis is noted in the left popliteal vein. Acute deep vein thrombosis is noted in the left tibio-peroneal trunk. Acute deep vein thrombosis is noted in the left posterior tibial vein. The remainder of the left lower extremity deep venous system is patent and compressible. Deep veins in the right lower extremity are patent and compressible. There is no evidence of right lower extremity deep vein thrombosis. Valvular competence appears intact within the proximal deep venous system on the right. The great saphenous veins are patent and compressible bilaterally. Pulsatile flow is noted in the deep venous system bilaterally, which may be indicative of elevated central venous pressure (i.e. congestive heart failure, pulmonary hypertension, etc.). Clinical correlation is advised. Ordering Physician: Kathleen Zambrano Performed By: Cyril Day RVT Echocardiogram 10/31/21 14:25 Interpretation Summary Normal LV size. Moderate eccentric left ventricular hypertrophy. Left ventricular systolic function is normal. The estimated ejection fraction is 55 %. D shaped septum in systole and diastole. Mildly dilated right ventricle. Ordering Physician: Ifrah Colmenares Referring Physician: NO PCP GIVEN Performed By: Mariaa Dale RCS D/C Instructions Discharge Diet: No restrictions Return to work on: 11/07/21 Weight Bearing Status: Full weight bearing Additional Activity Instructions: Be careful operating heavy machinery or using powered saws Meaningful Use Info Meaningful Use Diagnoses (Choose all that apply): VTE VTE Anticoag overlap given w/in hospital stay or rx'd at dc?: Yes Pt receive overlap for 5 days?: No Reason overlap not ordered, prescribed, or given for 5 days: Treatment Not Indicated Discharge Plan Admission Admit Date/Time: 10/31/21 13:07 Primary Reason for Your Visit: Pulmonary embolism Attending Provider: John Garcia Primary Care Provider: Alexis Fan Consulting Providers: Conner Metzger ; Silvio Fan ; Demetria Mares VETERINARY MEDICINE SCIENTIST ; Ifrah Colmenares Instructions Additional Instructions / Restrictions: I recommend you establish care with a primary care physician and make an appointment within the next 1 month Do not take any ibuprofen or Aleve while you are on Eliquis Discharge Orders/Prescriptions Prescriptions: New Eliquis 5 mg tablet 10 mg PO BID Qty: 60 0RF Rx Instructions: 10 mg twice a day for 1 week, then 5 mg twice a day thereafter, start first dose tonight Referrals / Follow Up: Silvio Fan DO [Med Staff - Active Staff] - See Referral Note (In 2 weeks, call for an appointment) Care Physician,No Primary [NON-STAFF] - Disposition Disposition (needs filled in before D/C Order can be placed): Home, Self Care Charges/Coding Visit Charges Inpatient E&M: 20235 Disch Hosp
== END 2021-11-01 13:37 | disposition home or self-care (01) | DRG 176 ==
LOC: ED 09:46 → PCU 13:45
PROVIDERS: Admitting Provider Student in an Organized Health Care Education/Training Program; Emergency Provider Emergency Medicine; PCP Family Medicine; Visit Provider Internal Medicine
DX: I26.92 Saddle embolus of pulmonary artery without acute cor pulmonale (principal); I82.402 Acute embolism and thrombosis of unspecified deep veins of left lower extremity; Z66 Do not resuscitate; Z87.891 Personal history of nicotine dependence; R94.6 Abnormal results of thyroid function studies; Z79.01 Long term (current) use of anticoagulants
CPT/HCPCS: 36415; 71275; 80048; 83880; 84439; 84443; 84484; 85025; 85610; 85730; 93005; 93306; 93970; 96361; 96365; 96366; 96375; 99285; J7030; Q9967; A4216

== ENCOUNTER → 2021-12-08 | Outpatient (CLI) | payer OTHER, SELFPAY ==
--- NOTE | 2021-12-08 08:04 | CT_ITS ---
STUDY: CT ABDOMEN AND PELVIS WITH CONTRAST REASON FOR EXAM: Male, 51 years old. R/O occult CANCER. History of pulmonary emboli. RADIATION DOSAGE (If Supplied By Facility): CTDIvol = ( 18.23 ) mGy, DLP = ( 916.84 ) mGycm TECHNIQUE: Transaxial images were obtained from the dome of the diaphragm to the symphysis pubis with oral contrast. Oral and amp; IV Readi-CAT and amp; 100mL Isovue-300 was administered. Sagittal and coronal images were reconstructed. Individualized dose optimization techniques were used for this CT. COMPARISON: None. FINDINGS: Minimal degree of increased markings/groundglass appearance in the posterior medial segment of the right lower lobe suggestive of a focal scarring. The visualized portions of the heart are within normal limits. Normal liver. Normal gallbladder and extrahepatic biliary system. Normal spleen. Normal pancreas. Normal bilateral adrenal glands. Normal right kidney. Normal left kidney. Normal visualized stomach. There is diffuse circumferential wall thickening of the terminal ileum with evidence of mucosal thickening. There is also evidence of a dissecting of the valvulae conniventes of the proximal small bowel loops with the mild dilatation. There is evidence of fracture or wall thickening of the jejunal loop in the left upper quadrant. There may be an element of intussusception. Crohn''s disease should be ruled out. Moderate amount of fecal material is seen in the right hemicolon. The appendix is visualized and appears normal. Normal abdominal aorta. Normal inferior vena cava. Normal retroperitoneum. Normal urinary bladder. Normal abdominal wall. There are mild degenerative changes of the visualized lumbar spine. CT/Abdomen/Pelvis WITH Contrast IMPRESSION: A normal appearance of the terminal ileum as described. Abnormal appearance of the proximal small bowel loops with areas of diffuse thickening and possible mild intussusception of the jejunal loop in the left upper quadrant. Electronically Signed: Luis Burton MD at 10:30 EDT ,
== END | disposition home or self-care (01) ==
PROVIDERS: PCP Family Medicine; Referring Provider Internal Medicine Medical Oncology; Visit Provider Internal Medicine Medical Oncology
DX: I26.99 Other pulmonary embolism without acute cor pulmonale (principal); C80.1 Malignant (primary) neoplasm, unspecified
CPT/HCPCS: 74177; Q9967

== ENCOUNTER → 2021-12-22 | Outpatient (CLI) | payer OTHER, SELFPAY | END | disposition home or self-care (01) | LOC: CVS 10:46 | PROVIDERS: PCP Family Medicine; Referring Provider Internal Medicine Critical Care Medicine; Visit Provider Internal Medicine Critical Care Medicine | DX: Z00.00 Encounter for general adult medical examination without abnormal findings (principal) ==

== ENCOUNTER 2022-03-13 09:37 | Emergency (ER) | payer OTHER, SELFPAY ==
[2022-03-13 09:37] VITALS: BP 151/81; PULSE 79; RESP 16; TEMP 36.8; O2SAT 100; BMI 26.2
--- NOTE | 2022-03-13 09:51 | EKG12_ITS ---
Test Reason : CP Blood Pressure : / mmHG Vent. Rate : 083 BPM Atrial Rate : 083 BPM P-R Int : 136 ms QRS Dur : 082 ms QT Int : 340 ms P-R-T Axes : 047 005 025 degrees QTc Int : 399 ms Normal sinus rhythm with sinus arrhythmia Normal ECG Confirmed by KAREEM RAMIREZ, ROSCOE ([id number]), social media editor MARTHA TOUSSAINT ([id number]) on 03/15/2022 8:49:32 AM Referred By: BHARAT Confirmed By:ROSCOE SERNA MD
--- NOTE | 2022-03-13 09:52 | EDS_ITS ---
HPI History of Present Illness Chief Complaint: Chest Pain Informant: patient Narrative Narrative: Patient presents after an episode of epigastric lower chest pain that occurred this morning. 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 It was not hard work. He is not sure if that had caused it because he had done that recently. But he had some discomfort just in the upper epigastric area. He describes it as if he did too many sit ups but he did not do that. It lasted a few minutes. He did not get nausea vomiting diaphoresis shortness of breath or lightheadedness. It is gone now. When specifically asked he did have 1 episode of sharp right upper chest pain a couple weeks ago that lasted for few minutes with no other symptoms. He did not think anything of it at the time. He does have a history of pulmonary embolus diagnosed about 6 months ago. He is on and is taking appropriately his Eliquis. He also has high blood pressure. He quit smoking over a year ago. No immediate family history of heart disease. No known cholesterol or diabetes. He feels fine right now. He states on Sunday he thought he was getting a little cold. He had a little congestion and a fever but when he woke up it was completely gone and he does not have those symptoms now. He does not have any symptoms with exertion. He has no leg pain or swelling. [facility] Medical History Acute saddle pulmonary embolism Hypertension Left leg DVT Non-smoker Pulmonary embolism Home Medications apixaban 5 mg tablet (Eliquis) 5 mg PO BID #60 tabs 11/24/21 [Rx Last Taken Unknown] lisinopril 10 mg-hydrochlorothiazide 12.5 mg tablet 1 tab PO DAILY 02/14/22 [History Last Taken Unknown] Allergy/AdvReac Type Severity Reaction Status Date / Time No Known Allergies Allergy Verified 03/13/22 09:39 Social History Smoking Status: Former smoker Tobacco: How many years used: 1 Smokeless tobacco user: chewing tobacco second hand exposure: No alcohol intake: former substance use type: does not use ROS ROS ED Constitutional Constitutional ED: Reports other Details: See history of present illness. Resolved days ago. ; Denies chills Eyes Eyes: Denies change in vision ENT ENT ED: Denies rhinorrhea or sore throat Cardiovascular Cardiovascular: Reports as per HPI; Denies palpitations or racing heartbeat Respiratory/Chest Respiratory/Chest: Denies cough or dyspnea Gastrointestinal Gastrointestinal: Reports abdominal pain and other Details: Epigastric area pain as in history of present illness. ; Denies nausea or vomiting Musculoskeletal Musculoskeletal: Denies back pain Integumentary Denies rash Neurologic Neurologic: Denies headache(s) Psychiatric Psychiatric: Denies anxiety Endocrine Endocrinology: Denies polydipsia or polyuria Hematologic/Lymphatic Hematologic/Lymphatic: Reports easy bleeding and easy bruising Allergic/Immunologic Allergic/Immunologic ED: Denies urticaria EXAM Physical Exam Const Vital Signs: 03/13/22 09:37 03/13/22 09:47 03/13/22 10:05 Temperature 98.2 F Temperature Source Temporal Pulse Rate 79 Respiratory Rate 16 Respiratory Effort Normal Respiratory Pattern Normal Blood Pressure 151/81 H Blood Pressure Mean 104 Pulse Ox 100 Oxygen Delivery Method Room Air Room Air 03/13/22 12:50 03/13/22 13:08 Temperature Temperature Source Pulse Rate 76 74 Respiratory Rate 16 17 Respiratory Effort Respiratory Pattern Blood Pressure 148/86 H 136/91 H Blood Pressure Mean 106 106 Pulse Ox 97 98 Oxygen Delivery Method Room Air Room Air Positive well nourished General Appearance ED: NAD HEENT Reports moist mucous membranes Eyes EOMs intact bilaterally Neck no lymphadenopathy and no JVD Chest Wall inspection of chest normal and palpation of chest normal Resp normal respiratory effort and clear to auscultation bilaterally Effort and Inspection: Negative for pain with movement Auscultation: Negative for rales, rhonchi or wheezes Cardio regular rate and regular rhythm GI normal to inspection, nondistended, normoactive bowel sounds and soft to palpation Back/Spine no CVA tenderness Extremity normal to inspection General Extremety ED: Negative for edema, pulses abnormal or tenderness General Extremity: Negative for edema or pulses abnormal Neuro Sensorium / Orientation: awake and alert Psych mental status grossly normal Skin no rashes or lesions noted Heart Score History: Slightly/Non-Suspicious ECG: Normal Age: >45 - <65 years Risk Factors: 1 or 2 Risk Factors Troponin: </= Normal Limit Score: 2 MDM MDM MDM Narrative Medical decision making narrative: EKG chest x-ray showed no acute process. CBC was normal. Electrolytes were normal. Troponin was negative at 13. Repeat was 9. Patient still feeling well. He has a HEART score of 2. Plan will be to get him home. He basically had isolated epigastric pain with no other symptoms. We talked about diet changes meds for acid reflux. If he develops more chest pain or pressure especially if he has any shortness of breath nausea vomiting diaphoresis or lightheadedness he should return. Lab Data Labs: Laboratory Results - last 24 hr 03/13/22 03/13/22 03/13/22 09:45 09:45 12:08 WBC 7.3 RBC 4.48 L Hgb 14.4 Hct 42.8 MCV 95.5 H MCH 32.1 H MCHC 33.6 RDW Std Deviation 43.3 RDW Coeff of Jefry 12.3 Plt Count 374 MPV 10.2 Immature Gran % (Auto) 0.100 Neut % (Auto) 67.5 Lymph % (Auto) 21.1 [place] % (Auto) 7.8 Eos % (Auto) 2.5 Baso % (Auto) 1.0 Absolute Neuts (auto) 4.9 Absolute Lymphs (auto) 1.54 Nucleated RBC % 0 Sodium 138 Potassium 3.9 Chloride 106 Carbon Dioxide 29.0 Anion Gap 3 L BUN 14 Creatinine 0.99 Estim Creat Clear Calc 109.60 Est GFR (MDRD) Af Amer 102 Est GFR (MDRD) Non-Af 85 BUN/Creatinine Ratio 14.1 Glucose 120 H Calcium 9.0 Troponin I High Sens 13 9 Radiography Diagnostic Testing: Clinical Impression(s) from Imaging Studies Chest X-Ray 03/13/22 10:45 IMPRESSION: Normal x-ray examination of the chest. Electronically Signed: Luis Burton MD at 11:09 EST , Chest x-ray looked at by me and read by radiology shows no acute process. EKG Initial EKG: Comments: EKG done for indication of chest pain read by me shows a sinus rhythm with slight sinus arrhythmia. No ventricular ectopy. No acute ST elevation or depression of significance. OR interval, QRS duration and QTc no rmal. Discharge Plan Triage Chief Complaint: Chest Pain ED Provider: Wisam Pate Dx/Rx/DC Orders Clinical Impression: Chest pain Instructions: ED Chest Pain, Uncertain Cause Prescriptions: No Action Eliquis 5 mg tablet 5 mg PO BID Qty: 60 3RF lisinopril-hydrochlorothiazide 10-12.5 mg tablet 1 tab PO DAILY Primary Care Provider: Joceline Winters Referrals: Joecline Winters, [Primary Care Provider] - 3-5 Days Disposition Disposition: Home, Self Care
[2022-03-13 10:05] LABS: Absolute Lymphocyte Count 1.54 X10^3/uL (0.83-4.51); Absolute Neutrophil Count 4.9 X10^3/uL (2.0-7.7); Basophil# 0.07 X10^3/uL; Eosinophil# 0.18 X10^3/uL; Eosinophils% 2.5 % (0-5); Hematocrit 42.8 % (40-54); Hemoglobin 14.4 g/dL (13.0-16.5); Lymphocyte # 1.54 X10^3/ul (0.83-4.51); Lymphocyte % 21.1 % (19-41); Mean Corp Hgb Conc 33.6 g/dL (32-36); Mean Corpuscular Hgb 32.1 pg (27.0-32.0); Mean Corpuscular Volume 95.5 fL (80-94); Mean Platelet Vol. 10.2 fl (6.2-12.0); Monocyte# 0.57 X10^3/uL; Monocyte% 7.8 % (0-10); NRBC Flagged by Analyzer 0 % (0-5); Neutrophil # 4.94 X10^3/uL (2.7-7.7); Neutrophil % 67.5 % (47-70); Platelet Count 374 K/mm3 (150-450); RBC Distribution Width CV 12.3 % (11.6-14.6); RBC Distribution Width SD 43.3 fl (35.1-43.9); Red Blood Count 4.48 M/mm3 (4.6-6.2); White Blood Count 7.3 K/mm3 (4.4-11.0)
[2022-03-13] MEDS: Aspirin 81 MG TAB.CHEW 324 MG PO (10:07)
[2022-03-13 10:22] LABS: Anion Gap 3 (5-15); BUN 14 mg/dL (7-18); BUN/Creat Ratio 14.1 RATIO (10-20); Chloride 106 mmol/L (98-107); Creatinine, Serum 0.99 mg/dL (0.70-1.30); EST Glomerular Filtration Rate 85 mL/min (>60); Est Glom Filt Rate - Afr Amer 102 mL/min (>60); Glucose 120 mg/dL (74-106); Potassium 3.9 mmol/L (3.5-5.1); Sodium Level 138 mmol/L (136-145); Troponin-I HS (w/2H Reflex) 13 pg/mL (3.0-78.0)
--- NOTE | 2022-03-13 10:45 | RAD_ITS ---
STUDY: X-RAY CHEST REASON FOR EXAM: Male, 51 years old. Chest pain TECHNIQUE: Single AP portable view of the chest. COMPARISON: None. FINDINGS: EKG electrodes are seen. The lungs are clear and expanded. There is no demonstrated pleural abnormality. Normal size heart. Normal mediastinum and parminder. Normal visualized pulmonary arteries. Normal visualized aortic arch and descending thoracic aorta. Normal visualized thoracic spine. Normal visualized ribs, clavicles, and shoulders. There is no demonstrated abnormality of the visualized soft tissue structures of the upper abdomen. RAD/Chest 1 View (Portable) IMPRESSION: Normal x-ray examination of the chest. Electronically Signed: Lusi Burton MD at 11:09 EST ,
[2022-03-13 11:58] LABS: Reflex Troponin-HS? (from REC) Y
[2022-03-13 12:30] LABS: Troponin-I HS 9 pg/mL (3.0-78.0)
[2022-03-13 12:50] VITALS: BP 148/86; PULSE 76; RESP 16; O2SAT 97
[2022-03-13 13:08] VITALS: BP 136/91; PULSE 74; RESP 17; O2SAT 98
== END 2022-03-13 13:52 | disposition home or self-care (01) ==
PROVIDERS: Emergency Provider Emergency Medicine; PCP Family Medicine; Visit Provider Emergency Medicine
DX: R07.9 Chest pain, unspecified (principal); Z86.718 Personal history of other venous thrombosis and embolism; Z86.711 Personal history of pulmonary embolism; Z79.01 Long term (current) use of anticoagulants; Z87.891 Personal history of nicotine dependence
CPT/HCPCS: 71045; 80048; 84484; 85025; 93005; 99285; A4216

== ENCOUNTER 2022-03-13 16:16 | Emergency (ER) | payer OTHER, SELFPAY ==
[2022-03-13 16:17] VITALS: BP 167/101; PULSE 101; RESP 15; TEMP 36.6; O2SAT 100; BMI 26.7
--- NOTE | 2022-03-13 16:32 | EX.ED.DYSGE1 ---
HPI History of Present Illness Chief Complaint: Allergic Reaction Narrative Narrative: Patient presents with upper lip swelling for the past few hours. He is on 10 mg of lisinopril daily, he took his lisinopril about 11 hours ago. He has no difficulty swallowing no feeling of his throat tightening no shortness of breath no rash and no other bulbar involvement other than the upper lip. No recent fever chills PFSH PFSH Medical History Acute saddle pulmonary embolism Hypertension Left leg DVT Non-smoker Pulmonary embolism Home Medications apixaban 5 mg tablet (Eliquis) 5 mg PO BID #60 tabs 11/24/21 [Rx Last Taken Unknown] lisinopril 10 mg-hydrochlorothiazide 12.5 mg tablet 1 tab PO DAILY 02/14/22 [History Last Taken Unknown] labetalol 100 mg tablet 100 mg PO BID #30 tabs 03/13/22 [Rx Last Taken Unknown] Allergy/AdvReac Type Severity Reaction Status Date / Time acetaminophen Allergy Angioedema Verified 03/13/22 16:20 aspirin Allergy Angioedema Verified 03/13/22 16:17 Social History Smoking Status: Former smoker Tobacco: How many years used: 1 Smokeless tobacco user: chewing tobacco second hand exposure: No alcohol intake: former substance use type: does not use ROS ROS ED ROS Narrative Past medical history: Reviewed, includes hypertension, saddle PE. Medications: Reviewed Social history: Noncontributory Review of systems: All systems negative except as indicated General: No fever Eyes: No visual changes ENT: As in HPI. Normal voice. Neck: No neck pain Cardiovascular: No chest pain Respiratory: No shortness of breath or cough Gastrointestinal: No abdominal pain, nausea vomiting or diarrhea Genitourinary: No dysuria Musculoskeletal: Denies myalgias no difficulty with ambulation Skin: No rash Neurological: No memory loss, confusion or any focal weakness Psych: No recent behavioral changes Hematologic: Somewhat easy bruising secondary to Eliquis EXAM Physical Exam Narrative Exam Narrative: Physical exam Slightly hypertensive initially General: He is relatively comfortable in the bed. Head: Normocephalic, Atraumatic Eyes: Conjunctiva not pale ENT: Swelling of the upper lip. There is a chronic deformity on the left side of his tongue, the tongue is not swollen. Uvula is normal posterior oropharynx is normal and soft palate is normal. He has a normal voice. Neck: Supple, Nontender, No lymphadenopathy, no stridor Cardiovascular: Regular rate, Regular rhythm Respiratory: No distress, CTA bilaterally Abdomen: Soft, Nontender, Nondistended Back: Nontender, Normal Inspection. Negative for: CVA tenderness Extremities: Nontender, No edema Skin: Normal color, No rash Neurological: Alert, Normal Strength, Normal Sensation Psychological: Normal affect Const Vital Signs: 03/13/22 16:17 Temperature 97.8 F Temperature Source Temporal Pulse Rate 101 H Respiratory Rate 15 Blood Pressure 167/101 H Blood Pressure Mean 123 Pulse Ox 100 Oxygen Delivery Method Room Air MDM MDM MDM Narrative Medical decision making narrative: Patient's clinical exam is significant for angioedema at this time it is contained to the upper lip and he has not taken his lisinopril in about 11 hours. He will DC the lisinopril I was very specific about never taking an JOSHUA inhibitor again. I will write him for labetalol and he can follow-up with his PCP for further blood pressure medications. Otherwise I will observe him for 4 hours to make sure this is not getting any worse. Discharge Plan Triage Chief Complaint: Allergic Reaction ED Provider: Srinath Us Dx/Rx/DC Orders Clinical Impression: Angioedema, Hypertension Instructions: ED Angioedema Prescriptions: New labetalol 100 mg tablet 100 mg PO BID Qty: 30 0RF No Action Eliquis 5 mg tablet 5 mg PO BID Qty: 60 3RF lisinopril-hydrochlorothiazide 10-12.5 mg tablet 1 tab PO DAILY Primary Care Provider: Joceline Winters Referrals: Joceline Winters, [Primary Care Provider] - 3-5 Days Disposition Disposition: Home, Self Care
[2022-03-13] MEDS: MethylPREDNISolone 125 MG/2 ML Vial IV (16:39)
[2022-03-13] MEDS: DiphenhydrAMINE 50 MG/ML Syringe 25 MG IV (16:40)
[2022-03-13] MEDS: Famotidine 200 MG/20 ML MDV 20 MG in 0.9% Normal Saline (Pres. free 8 ML 300 MG IV (17:14)
[2022-03-13 18:06] VITALS: BP 140/68; PULSE 78; RESP 18; O2SAT 98
[2022-03-13 19:00] VITALS: BP 151/91; PULSE 75; RESP 12; O2SAT 100
[2022-03-13 20:00] VITALS: BP 146/92; PULSE 85; RESP 16; O2SAT 97
== END 2022-03-13 20:31 | disposition home or self-care (01) ==
PROVIDERS: Emergency Provider Emergency Medicine; PCP Family Medicine; Visit Provider Emergency Medicine
DX: T78.3XXA Angioneurotic edema, initial encounter (principal); I10 Essential (primary) hypertension; Z87.891 Personal history of nicotine dependence; Z86.718 Personal history of other venous thrombosis and embolism; Z79.899 Other long term (current) drug therapy; X58.XXXA Exposure to other specified factors, initial encounter
CPT/HCPCS: 96374; 96375; 99282; J3490

== ENCOUNTER → 2022-03-31 | Outpatient (CLI) | payer OTHER, SELFPAY ==
[2022-03-31 10:36] LABS: Erythrocyte Sedimentation Rate 13 mm/hr (0-20)
[2022-03-31 10:37] LABS: Absolute Lymphocyte Count 1.37 X10^3/uL (0.83-4.51); Absolute Neutrophil Count 4.3 X10^3/uL (2.0-7.7); Basophil# 0.07 X10^3/uL; Basophil% 1.1 % (0-1); Eosinophil# 0.23 X10^3/uL; Eosinophils% 3.5 % (0-5); Hematocrit 41.3 % (40-54); Hemoglobin 13.5 g/dL (13.0-16.5); Lymphocyte # 1.37 X10^3/ul (0.83-4.51); Mean Corp Hgb Conc 32.7 g/dL (32-36); Mean Corpuscular Hgb 30.8 pg (27.0-32.0); Mean Corpuscular Volume 94.1 fL (80-94); Mean Platelet Vol. 10.5 fl (6.2-12.0); Monocyte# 0.56 X10^3/uL; Monocyte% 8.6 % (0-10); NRBC Flagged by Analyzer 0 % (0-5); Neutrophil # 4.27 X10^3/uL (2.7-7.7); Neutrophil % 65.5 % (47-70); Platelet Count 327 K/mm3 (150-450); RBC Distribution Width CV 12.1 % (11.6-14.6); RBC Distribution Width SD 42.2 fl (35.1-43.9); Red Blood Count 4.39 M/mm3 (4.6-6.2); White Blood Count 6.5 K/mm3 (4.4-11.0)
[2022-03-31 10:59] LABS: ALB/GLOB Ratio 1.1 RATIO (0.9-2.4); AST(SGOT) 28 U/L (15-37); Alanine Aminotransfer ALT/SGPT 33 U/L (16-61); Albumin, Serum 3.9 g/dL (3.2-5.0); Alkaline Phosphatase 71 U/L (45-117); Anion Gap 2 (5-15); BUN 13 mg/dL (7-18); BUN/Creat Ratio 12.6 RATIO (10-20); CRP < 2.90 mg/L (0.0-3.0); Chloride 110 mmol/L (98-107); Creatinine, Serum 1.03 mg/dL (0.70-1.30); EST Glomerular Filtration Rate 81 mL/min (>60); Est Glom Filt Rate - Afr Amer 98 mL/min (>60); Globulin 3.5 g/dL (2.2-4.2); Glucose 109 mg/dL (74-106); LDH 255 U/L (87-241); Potassium 4.2 mmol/L (3.5-5.1); Protein, Total 7.4 g/dL (6.4-8.2); Sodium Level 140 mmol/L (136-145)
[2022-04-03 16:08] LABS: Anti-Centromere B Ab <0.2 AI (0.0-0.9); Anti-Chromatin <0.2 AI (0.0-0.9); Anti-Jo <0.2 AI (0.0-0.9); Anti-Scleroderma-70 AB <0.2 AI (0.0-0.9); RNP Ab 0.6 AI (0.0-0.9); SJOGREN'S Anti-SS-A test < 0.2 AI (0.0-0.9); SJOGREN'S Anti-SS-B test < 0.2 AI (0.0-0.9); Smith Ab <0.2 AI (0.0-0.9)
[2022-04-04 11:02] LABS: Anti-dsDNA Ab <1 IU/mL (0-9)
[2022-04-04 16:08] LABS: Endomysial Antibody IgA Negative (Negative)
[2022-04-04 19:46] LABS: Immunoglobulin A 180 mg/dL (90-386); t-Transglutaminase IgA <2 U/mL (0-3)
[2022-04-08 14:13] LABS: Albumin 3.7 g/dL (2.9-4.4); Alpha-1-Globulins 0.2 g/dL (0.0-0.4); Alpha-2-Globulins 0.9 g/dL (0.4-1.0); Cytoplasmic Ab (C-ANCA) <1:20 titer (Neg:<1:20); Gamma Globulin 0.9 g/dL (0.4-1.8); Immunoglobulin A 175 mg/dL (90-386); Immunoglobulin E 169 IU/mL (6-495); Immunoglobulin G 1000 mg/dL (603-1613); Immunoglobulin M 47 mg/dL (20-172); PROEL- TOTAL PROTEIN 6.7 g/dL (6.0-8.5)
[2022-04-09 12:38] LABS: Perinuclear Ab (P-ANCA) <1:20 titer (Neg:<1:20)
== END | disposition home or self-care (01) ==
PROVIDERS: PCP Family Medicine; Referring Provider Internal Medicine Gastroenterology; Visit Provider Internal Medicine Gastroenterology
DX: R93.5 Abnormal findings on diagnostic imaging of other abdominal regions, including retroperitoneum (principal)
CPT/HCPCS: 36415; 80053; 82784; 82785; 83516; 83615; 84165; 85025; 85652; 86140; 86225; 86235; 86255; 86256; 86334

== ENCOUNTER → 2022-04-06 | Outpatient (CLI) | payer OTHER, SELFPAY ==
[2022-04-09 12:44] LABS: Calprotectin, Stool 329 ug/g (0-120)
== END | disposition home or self-care (01) ==
LOC: LABSPEC 06:23
PROVIDERS: PCP Family Medicine; Referring Provider Internal Medicine Gastroenterology; Visit Provider Internal Medicine Gastroenterology
DX: R93.5 Abnormal findings on diagnostic imaging of other abdominal regions, including retroperitoneum (principal)
CPT/HCPCS: 83630; 83993

== ENCOUNTER → 2022-07-19 | Outpatient (CLI) | payer OTHER, SELFPAY ==
--- NOTE | 2022-07-19 07:25 | CT_ITS ---
EXAM: CTA Abdomen and Pelvis WO/W Contrast Injection HISTORY: Abdominal and back pain COMPARISON: 12/08/2021 Technique: 2.5 mm helical cuts were performed through the abdomen and pelvis with 100 mL Isovue-370 contrast. MPR performed. Radiation CTDIvol 11.37 Radiation DLP 587.71 FINDINGS: Lung bases show chronic interstitial changes with minimal atelectatic changes. Heart size is normal without coronary artery calcifications noted. Mild fatty infiltration of liver is noted without a discrete lesion. Normal-appearing gallbladder spleen, pancreas, and adrenal glands. No obstructive uropathy or suspicious solid renal lesion. Normal-appearing stomach. Small bowel loops are unremarkable, no evidence of ileus or obstruction. Retained stool noted in the colon with scattered colonic diverticula but no CT evidence of acute diverticulitis. No free intraperitoneal fluid, air, or suspicious adenopathy. Normal appendix visualized on coronal recon images 67 through 74. Peripheral calcifications in the abdominal aorta without aneurysm or dissection. The bladder distends normally. Bony structures show degenerative change. No suspicious lytic or blastic bony lesion. Overall, little significant interval change since previous study. CT/CTA Abd/Pelvis W/WO Contrast IMPRESSION: Normal tapering of the abdominal aorta no aneurysm or dissection No free peritoneal fluid, air, or suspicious adenopathy, normal appendix visualized Mild fatty infiltration of the liver, no discrete lesion Electronically Signed: Jayesh Davis MD at 8:32 EDT ,
== END | disposition home or self-care (01) ==
LOC: CT 07:24
PROVIDERS: PCP Family Medicine; Referring Provider Internal Medicine Gastroenterology; Visit Provider Internal Medicine Gastroenterology
DX: I26.99 Other pulmonary embolism without acute cor pulmonale (principal)
CPT/HCPCS: 74174; Q9967; A4216

== ENCOUNTER → 2023-03-06 | Outpatient (CLI) | payer OTHER, SELFPAY ==
--- NOTE | 2023-03-06 10:13 | US_ITS ---
INDICATION: pain EXAMINATION: Ultrasound US Scrotum (Contents) TECHNIQUE: Realtime ultrasound of the testicles was performed with grayscale, Color Doppler and spectral Doppler analysis. COMPARISON: None. FINDINGS: RIGHT: TESTIS: Measures 4.7 x 3.2 x 2.3 cm. Normal in size and echotexture, without focal lesion. COLOR DOPPLER: Normal arterial flow present in the testicle with monophasic waveforms. EPIDIDYMIS: Normal in size and echotexture, without focal lesion. [Normal color Doppler flow pattern in the epididymis. HYDROCELE: Small. VARICOCELE: None. LEFT: TESTIS: Measures 4.5 x 3.1 x 2.6 cm. Normal in size and echotexture, without focal lesion. COLOR DOPPLER: Normal arterial flow present in the testicle with monophasic waveforms. EPIDIDYMIS: Normal in size and echotexture, without focal lesion. [Normal color Doppler flow pattern in the epididymis. HYDROCELE: Small. VARICOCELE: None. US/Testicular with Arterial Flow IMPRESSION: Small bilateral hydroceles. Otherwise normal bilateral testes and epididymis. Electronically Signed: Rojelio Muhammad MD at 16:16 EST ,
== END | disposition home or self-care (01) ==
PROVIDERS: PCP Family Medicine; Referring Provider Family Medicine; Visit Provider Family Medicine
DX: R10.31 Right lower quadrant pain (principal)
CPT/HCPCS: 76870; 93976

== ENCOUNTER 2023-03-07 07:03 | Emergency (ER) | payer OTHER, SELFPAY ==
[2023-03-07 07:04] VITALS: BP 166/98; PULSE 67; RESP 18; TEMP 36.3; O2SAT 99; BMI 27.0
--- NOTE | 2023-03-07 08:14 | CT_ITS ---
INDICATION: groin pain EXAMINATION: CT ABDOMEN AND PELVIS WITHOUT CONTRAST - CT Abdomen And Pelvis W/O Contrast Injection TECHNIQUE: Helically acquired images were obtained of the abdomen and pelvis without oral or IV contrast. A radiation dose optimization technique was used for this scan. IV Contrast dosage and agent: None. Oral contrast: None. RADIATION DOSAGE (If Supplied By Facility): CTDIvol = ( 8.97 ) mGy, DLP = ( 553.59 ) mGycm COMPARISON: December 08, 2021 and July 19, 2022 FINDINGS: LOWER CHEST: There is grossly stable dependent atelectasis within the right lower lobe. There is a stable 5 mm left lower lobe nodule. No cardiomegaly or pericardial effusion. The lack of intravenous contrast limits evaluation of solid visceral organs. LIVER: Homogeneous. No focal mass. GALLBLADDER AND BILIARY TREE: No calcified gallstones. No gallbladder distension or wall edema. No intra- or extrahepatic biliary ductal dilation. PANCREAS: No focal cystic or solid mass. SPLEEN: Normal size without focal cystic or solid mass. ADRENAL GLANDS: No nodules. KIDNEYS AND URETERS: Normal renal size and position. No hydronephrosis. PERITONEUM: No ascites or free air. No other fluid collection. BOWEL: No evidence of acute appendicitis. No stomach or bowel distension. There are diverticula arising from the colon. No focal inflammatory change. LYMPH NODES: No enlarged mesenteric or retroperitoneal lymph nodes. VESSELS: Aorta is non-dilated. URINARY BLADDER: Unremarkable. REPRODUCTIVE ORGANS: No pelvic masses. ABDOMINAL WALL: No discrete abdominal or pelvic wall hernia. The inguinal regions are stable. BONES: There are degenerative changes of the visualized thoracic and lumbar spine. There are stable bilateral L4 pars defects associated with a stable grade 1 anterior spondylolisthesis of L4 on L5. CT/Abdomen/Pelvis without Cont IMPRESSION: Colonic diverticulosis. Degenerative changes of the visualized thoracic and lumbar spine. 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 Electronically Signed: Shama Ryan MD at 8:42 EST ,
--- NOTE | 2023-03-07 08:16 | EX.ED.GUMALE ---
HPI History of Present Illness Chief Complaint: Male Pain/Injury Informant: patient and spouse/S.O. Narrative Narrative: Presents with intermittent increasing pain right groin for the past 2 weeks. Initially saw his PCP at the office states was evaluated however not checked in that area he was provided Voltaren cream. He states symptoms seem to worsen when he walks or moves. Sharp shooting sensation. No urinary symptoms. No vomiting or diarrhea. Normal bowel movements daily. No history of similar prior to 2 weeks ago. He is called back his PCP office they ordered testicular ultrasound which was obtained yesterday. He denies scrotal pain or swelling. Denies dysuria. [facility] Medical History Acute saddle pulmonary embolism Hypertension Left leg DVT Non-smoker Pulmonary embolism Home Medications labetalol 100 mg tablet 100 mg PO BID #30 tabs 03/13/22 [Rx Last Taken Unknown] gabapentin 300 mg capsule 300 mg PO QHS #14 caps 03/07/23 [Rx Last Taken Unknown] Allergy/AdvReac Type Severity Reaction Status Date / Time aspirin Allergy Angioedema Verified 03/07/23 07:09 lisinopril Allergy Angioedema Verified 03/07/23 07:09 Family History Other Hypertension Social History Smoking Status: Former smoker Tobacco: How many years used: 1 Smokeless tobacco user: chewing tobacco second hand exposure: No alcohol intake: former substance use type: does not use ROS ROS ED Constitutional Constitutional ED: Denies chills, fever(s) or sweats Eyes Eyes: Denies change in vision ENT ENT ED: Denies dysphagia or sore throat Cardiovascular Cardiovascular: Denies chest pain, leg edema, palpitations or racing heartbeat Respiratory/Chest Respiratory/Chest: Denies cough, dyspnea or dyspnea on exertion Gastrointestinal Gastrointestinal: Denies abdominal pain, diarrhea, nausea or vomiting Genitourinary Genitourinary ED: Reports other Details: Right groin pain ; Denies dysuria, hematuria or urinary frequency Musculoskeletal Musculoskeletal: Denies back pain, extremity pain or neck pain Integumentary Denies rash or wounds Neurologic Neurologic: Denies headache(s), paresthesias or weakness EXAM Physical Exam Const Vital Signs: 11/29/23 07:04 03/07/23 07:41 03/07/23 10:32 Temperature 97.3 F L Temperature Source Temporal Pulse Rate 67 72 Respiratory Rate 18 15 Respiratory Effort Normal Non-Labored Respiratory Pattern Normal Blood Pressure 166/98 H 134/69 H Blood Pressure Mean 120 90 Pulse Ox 99 98 Oxygen Delivery Method Room Air Positive well nourished and well developed General Appearance ED: well developed and NAD HEENT Reports moist mucous membranes normocephalic and atraumatic Eyes PERRL, EOMs intact bilaterally and conjunctivae normal General Eye ED: Yes normal appearance of both eyes Neck no lymphadenopathy and supple General: Negative for tenderness Chest Wall Chest: Negative for tenderness Resp normal respiratory effort and normal air movement Effort and Inspection: symmetric chest movement; Negative for respiratory distress Cardio regular rate, regular rhythm and no murmurs Peripheral Pulses: pulses 2+ throughout GI normal to inspection, nondistended, normoactive bowel sounds and non-tender Palpation: Negative for guarding or rebound tenderness present Narrative: Normal scrotum without tenderness no swelling. No inguinal hernias palpated. No penile discharge or ulcers. No lymphadenopathy in the groin, there is no abscess no fluctuance no erythema. I cannot reproduce it. Back/Spine no CVA tenderness and no thoracic nor lumbar tenderness Extremity normal to inspection General Extremety ED: Negative for edema or tenderness General Extremity: Negative for edema Neuro oriented x3 and no sensory deficits noted Sensorium / Orientation: awake and alert Skin no rashes or lesions noted and no wounds MDM MDM MDM Narrative Medical decision making narrative: Interventions / MDM: Differential diagnosis: Right groin pain, lumbar radiculopathy Diagnosis considered but do not suspect: Hernia however negative CT. DVT however negative ultrasound. Lymphadenopathy however negative images. Abscess however negative images And clinical exam. My EKG interpretation: N/A Imaging independently reviewed and interpreted by myself: CT abdomen pelvis: No acute pathology. No hernias. No masses. Right lower extremity ultrasound: Negative for DVT. External documents reviewed: Outpatient scrotal ultrasound did note bilateral small hydroceles. Test considered but not ordered:N/A ED course: Patient isolated groin pain in the inguinal region. There is no hernias palpated. There is no abscess. No lymphadenopathy.'s ongoing symptoms, discussed CT scan abdomen pelvis with urine for further evaluation. He agrees with this. 0910: Urine negative, CT results also give for any acute process. Patient history does have history of PE from DVT 18 months ago unprovoked finished 6 months of therapy. He has no lower leg pain, he has pulses distally. However with his history will obtain ultrasound right lower leg for further evaluation. Ultrasound negative. He reports shooting pain in his groin, no current back pain. Discussed unclear etiology however with neuropathic type symptoms, discussed starting gabapentin for which she will try. Prescription sent to his pharmacy to take at night. He will use ibuprofen in addition as needed. Will follow-up with his PCP. All questions were answered. Patient Re-evaluation: stable Disposition discussed with patient/family/significant other: Patient and significant other patient Case discussed with consulting clinician: N/A This note was generated with [employer] dictation software. It may contain incorrect words, spelling, and punctuation that were not noted in checking the note before signing. Lab Data Attestation: I reviewed the patient's lab results. Labs: Laboratory Results - last 24 hr 03/07/23 08:45 Urine Color Yellow Urine Clarity Clear Urine pH 7.0 Ur Specific [place] 1.010 Urine Protein Negative Urine Glucose (UA) Normal Urine Ketones Negative Urine Occult Blood Negative Urine Nitrite Negative Urine Bilirubin Negative Urine Urobilinogen Normal Ur Leukocyte Esterase Negative Urine RBC 0 SEEN Urine WBC 0 SEEN Ur Squamous Epith Cells 0-5 SEEN Urine Bacteria 0 SEEN Urine Mucus 0 SEEN Radiography Diagnostic Testing: Clinical Impression(s) from Imaging Studies Abdomen/Pelvis CT 03/07/23 08:14 IMPRESSION: Colonic diverticulosis. Degenerative changes of the visualized thoracic and lumbar spine. 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 Electronically Signed: Shama Ryan MD at 8:42 EST , Venous Doppler Study 03/07/23 09:07 Interpretation Summary There is no evidence of right lower extremity deep vein thrombosis. Right great saphenous vein appears patent and compressible segmentally. Normal flow patterns left common femoral vein Ordering Physician: Manuel Collier Referring Physician: Joceline Wniters Performed By: Xiao Fallon RVT Discharge Plan Triage Chief Complaint: Male Pain/Injury Other Complaint: General Illness ED Provider: Manuel Collier Dx/Rx/DC Orders Clinical Impression: Rt groin pain Instructions: Gabapentin Oral Capsule 300 mg Prescriptions: New gabapentin 300 mg capsule 300 mg PO QHS Qty: 14 0RF No Action labetalol 100 mg tablet 100 mg PO BID Qty: 30 0RF Stand Alone Forms: ED Work / School Excuse Primary Care Provider: Joceline Winters Referrals: Joceline Winters, [Primary Care Provider] - 3-5 Days Activity Restrictions/Additional Instructions: Reviewed your scrotal ultrasound noted small hydroceles bilaterally. This is benign. Your CT scan abdomen pelvis today negative for any hernias or any lymphadenopathy. Your right leg ultrasound negative for DVT. Your symptoms reporting shooting nerve sensations. You have no current back pain however possibility of radicular pain from nerve. Use gabapentin as prescribed. Continue Tylenol may add ibuprofen up to 600 mg every 6 hours. Follow-up with your doctor. Disposition Disposition: Home, Self Care Discharge Date/Time: 03/07/23 10:33
[2023-03-07 08:49] LABS: Bacteria 0 SEEN /hpf (None Seen); Mucous, Urine 0 SEEN /hpf (<or=2+); Red Blood Cells-Urine 0 SEEN /hpf (0-5); White Blood Cells 0 SEEN /hpf (0-5)
[2023-03-07 09:00] LABS: Color, Urine Yellow (Yellow); Glucose, Dipstick Normal (Normal); Ketone-Dipstick Negative (Negative); Leukocyte Esterase-Dipstick Negative /ul (Negative); Nitrite-Dipstick Negative (Negative); Occult Blood-Urine Negative /ul (Negative); Protein-Dipstick Negative (Negative); Urine Bilirubin Dipstick Negative (Negative); Urine Clarity Clear (Clear); Urine Urobilinogen Normal (Normal)
--- NOTE | 2023-03-07 09:07 | VDLE_ITS ---
Reason For Study: Right leg pain RIGHT LEFT GSV is normal. CFV is compressible, spontaneous, phasic, CFV is compressible, spontaneous, phasic, competent, and demonstrates normal competent and demonstrates normal augmentation. augmentation. FV is compressible, spontaneous, phasic, competent and demonstrates normal augmentation. POP V is compressible, spontaneous, phasic, competent and demonstrates normal augmentation. T/P Trunk is compressible. PTV is compressible. RT PerV is compressible. Procedure This is a venous duplex using B-mode, color flow and spectral Doppler. Exam performed portable in ED. A preliminary report was called and/or faxed to Dr. Collier. VL/Venous Duplex US, Unilateral Interpretation Summary There is no evidence of right lower extremity deep vein thrombosis. Right great saphenous vein appears patent and compressible segmentally. Normal flow patterns left common f emoral vein Ordering Physician: Manuel Collier Referring Physician: Joceline Winters Performed By: Xiao Fallon RVT
[2023-03-07 09:18] LABS: Squamous Epithelial Cells - UA 0-5 SEEN /hpf (0-5)
[2023-03-07 10:32] VITALS: BP 134/69; PULSE 72; RESP 15; O2SAT 98
== END 2023-03-07 10:33 | disposition home or self-care (01) ==
PROVIDERS: Emergency Provider Emergency Medicine; PCP Family Medicine; Visit Provider Emergency Medicine
DX: R10.31 Right lower quadrant pain (principal); I10 Essential (primary) hypertension; Z79.899 Other long term (current) drug therapy; Z86.711 Personal history of pulmonary embolism; Z86.718 Personal history of other venous thrombosis and embolism; Z87.891 Personal history of nicotine dependence
CPT/HCPCS: 74176; 81001; 93971; 99283

== ENCOUNTER → 2023-07-30 | Outpatient (CLI) | payer OTHER, SELFPAY ==
[2023-07-30 12:04] LABS: Absolute Lymphocyte Count 0.91 X10^3/uL (0.83-4.51); Absolute Neutrophil Count 3.6 X10^3/uL (2.0-7.7); Basophil# 0.06 X10^3/uL; Basophil% 1.1 % (0-1); Eosinophil# 0.17 X10^3/uL; Eosinophils% 3.3 % (0-5); Hematocrit 43.9 % (40-54); Hemoglobin 13.9 g/dL (13.0-16.5); Lymphocyte # 0.91 X10^3/ul (0.83-4.51); Lymphocyte % 17.4 % (19-41); Mean Corp Hgb Conc 31.7 g/dL (32-36); Mean Corpuscular Hgb 28.8 pg (27.0-32.0); Mean Corpuscular Volume 90.9 fL (80-94); Mean Platelet Vol. 10.6 fl (6.2-12.0); Monocyte# 0.53 X10^3/uL; Monocyte% 10.1 % (0-10); NRBC Flagged by Analyzer 0 % (0-5); Neutrophil # 3.55 X10^3/uL (2.7-7.7); Neutrophil % 67.9 % (47-70); Platelet Count 350 K/mm3 (150-450); RBC Distribution Width CV 12.7 % (11.6-14.6); RBC Distribution Width SD 42.6 fl (35.1-43.9); Red Blood Count 4.83 M/mm3 (4.6-6.2); White Blood Count 5.2 K/mm3 (4.4-11.0)
[2023-07-30 12:27] LABS: ALB/GLOB Ratio 1.1 RATIO (0.9-2.4); AST(SGOT) 18 U/L (15-37); Alanine Aminotransfer ALT/SGPT 31 U/L (16-61); Albumin, Serum 3.8 g/dL (3.2-5.0); Alkaline Phosphatase 70 U/L (45-117); Anion Gap 4 (5-15); BUN 15 mg/dL (7-18); BUN/Creat Ratio 13.6 RATIO (10-20); Calcium,Total 9.1 mg/dL (8.5-10.1); Chloride 107 mmol/L (98-107); Cholesterol 179 mg/dL (200); EST Glomerular Filtration Rate 75 mL/min (>60); Est Glom Filt Rate - Afr Amer 90 mL/min (>60); Globulin 3.6 g/dL (2.2-4.2); Glucose 120 mg/dL (74-106); High Density Lipoprotein 34 mg/dL; Potassium 4.5 mmol/L (3.5-5.1); Protein, Total 7.4 g/dL (6.4-8.2); Sodium Level 137 mmol/L (136-145); Triglycerides 272 mg/dL; Very Low Density Lipoprotein 54 mg/dL (5-40)
[2023-07-30 12:41] LABS: Microalbumin,Random Urine 16.2 mg/L (NO RANGE EST.); Microalbumin:Creatinine Ratio 9.5 mg/g CRE (<30 mg/g CRE)
[2023-07-30 13:07] LABS: Hemoglobin A1c 5.5 % (3.8-5.6)
== END | disposition home or self-care (01) ==
LOC: MFPLAB 10:33
PROVIDERS: PCP Family Medicine; Visit Provider Family Medicine
DX: Z13.228 Encounter for screening for other metabolic disorders (principal); I10 Essential (primary) hypertension; Z13.0 Encounter for screening for diseases of the blood and blood-forming organs and certain disorders involving the immune mechanism
CPT/HCPCS: 36415; 80053; 80061; 82043; 82570; 83036; 84443; 85025

== ENCOUNTER → 2023-08-21 | Outpatient (CLI) | payer OTHER, SELFPAY ==
[2023-08-21 14:03] LABS: Free T3 2.7 pg/mL (2.18-3.98); T4 Total, Thyroxin 7.4 ug/dL (4.5-12.1); Thyroid Stim Hormone (TSH) 5.64 uIU/mL (0.358-3.74)
[2023-08-23 07:08] LABS: Thyroid Peroxidase AB 79 IU/mL (0-34); Thyroid Stim Immunoglob 0.11 IU/L (0.00-0.55)
== END | disposition home or self-care (01) ==
LOC: MFPLAB 09:58
PROVIDERS: PCP Family Medicine; Visit Provider Family Medicine
DX: I10 Essential (primary) hypertension (principal)
CPT/HCPCS: 36415; 84436; 84443; 84445; 84481; 86376

== ENCOUNTER → 2024-03-17 | Outpatient (CLI) | payer OTHER, SELFPAY ==
[2024-03-17 15:48] LABS: Fibrinogen 395 mg/dl (203-444)
[2024-03-17 16:00] LABS: D-Dimer Quantitative (DVT/PE) 0.27 FEU/ug/m (0.27-0.49)
== END | disposition home or self-care (01) ==
LOC: MTLAB 13:17
PROVIDERS: PCP Family Medicine; Referring Provider Family Medicine; Visit Provider Family Medicine
DX: Z86.711 Personal history of pulmonary embolism (principal)
CPT/HCPCS: 36415; 85379; 85384

== ENCOUNTER 2024-04-17 11:30 | Day surgery (SDC) | payer OTHER, SELFPAY ==
[2024-04-17 11:42] VITALS: BP 147/88; PULSE 75; RESP 16; TEMP 36.7; O2SAT 100; BMI 27.7
--- NOTE | 2024-04-17 12:55 | LES_PTH ---
PATIENT: ASHLEY KELLEY [place] [facility] [id number] AGE/SX: 53/M ROOM: RE04/17/[address]: Dr. 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 Negative for malignancy. 04/21/2024 COMMENT This case has been reviewed in consultation with Dr. Canales who concurs with the above diagnosis. IDC:PW MICROSCOPIC DESCRIPTION Slides are reviewed. 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 The specimen consists of seven variable sized pieces of resendez-brown skin. The largest piece measures 1.5 x 1.0 x 0.2cm. The other six pieces measures 0.5 x 0.4 x 0.1cm, 0.6 x 0.5 x 0.1cm, 0.5 x 0.5 x 0.1cm, 0.6 x 0.5 x 0.1cm, 0.7 x 0.4 x 0.1cm, and 0.6 x 0.5 x 0.1cm. Also present in the container are a few smaller fragments of resendez-brown tissue measuring in aggregate 0.5 x 0.1 x 0.1cm. The entire specimen is submitted in four cassettes as follows: 1- largest piece of tissue and smaller fragments of tissue, 2-4- each cassette contains two pieces, 1 piece is inked black, and 1 piece is inked blue. Largest piece is serially sectioned other six pieces are bisected. SJ 04/18/2024 TC:1 CPT:12858t3
--- NOTE | 2024-04-17 13:00 | PCM.HP.BLA ---
History and Physical Date of Admission: 04/17/24 The patient is examined and there are no changes to the H&P dated 03/19/2024. Informed consent was obtained for shave excision lesions of the suprapubic area with submission for pathologic evaluation. He is marked in the preop holding area prior to surgery. 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
[2024-04-17 13:32] VITALS: BP 131/79; BP 134/82; BP 136/82; O2SAT 100; O2SAT 98; O2SAT 99
[2024-04-17] MEDS: Lidocaine 1% /Epi 1:100 9 ML, Sodium Bicarbonate 1 MEQ OPERA.SITE (13:52)
--- NOTE | 2024-04-17 14:07 | EX.PCM.DISCH ---
Discharge Instructions Dressing / Incision Additional Dressing/Incision Instructions:: May shower over the area but do not scrub. Apply Xeroform or Vaseline gauze or antibiotic ointment to the area daily and cover with dry gauze. May discontinue dressing with no further drainage is noted. Take the oral antibiotic (Keflex) 2 times a day until finished. Follow Up Care Please Follow Up With: Raya Crum MD When: In 2 weeks. Test Results: Test results from this visit will be discussed in further detail at your follow-up appointment, if applicable. Discharge Plan Admission Attending Provider: Raya Crum Primary Care Provider: Mitchell Smith Instructions Print Language: [place] Discharge Orders/Prescriptions Prescriptions: New cephalexin 500 mg capsule 500 mg PO BID 7 Days Qty: 14 0RF No Action amlodipine 10 mg tablet 10 mg PO QDAY labetalol 200 mg tablet 200 mg PO BID labetalol 100 mg tablet 100 mg PO BID Qty: 30 0RF Referrals / Follow Up: Mitchell Smith MD [Primary Care Provider] - Disposition Disposition (needs filled in before D/C Order can be placed): Home, Self Care
--- NOTE | 2024-04-17 14:10 | OP.PCM_ITS ---
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: Operative Report (Standard) Operative Information Date of Procedure: 04/17/24 Pre-Operative Diagnosis: Pigmented lesions x 6 suprapubic area Post-Operative Diagnosis: Same Surgery/Procedure Performed: Shave excision suprapubic lesions x 6 (2.0 cm, 1.0 cm, 1.0 cm, 1.0 cm, 1.0 cm, 1.0 cm) compensation consulting manager: No Type of Anesthesia: Local RN Documented Start/Stop Times: Operation Date: 04/17/24 12:55 Case Time Into Pre-Op 04/17/24 11:35 Out of Pre-Op 04/17/24 13:25 Into Room 04/17/24 13:30 Procedure Start 04/17/24 13:52 Procedure End 04/17/24 14:03 Out of Room 04/17/24 14:06 Procedure Start Time: 13:52 Procedure Stop Time: 14:03 Select all DRAINS/GRAFTS/IMPLANTS that apply: None Estimated Blood Loss: Minimal Specimen collected: Yes Description of specimen(s) removed: Suprapubic lesions x 6 Description of surgery: Patient presents for shave excision for biopsy of 6 suprapubic pigmented neoplasms. The procedure been thoroughly reviewed with the patient. Informed consent is obtained. The patient is brought to the operating room and placed on the operating room table in the supine position. The suprapubic area is prepped and draped in usual sterile fashion. 1% Xylocaine with epinephrine both buffered with sodium bicarb is used for local anesthetic. Following this, each site is shaved at the base and the base full rise. Xeroform gauze is placed on the site along with dry gauze and taped in place. He tolerated the procedure well was taken to the recovery area in an awake and stable condition. Needle and sponge counts are correct. Surgical Findings: As above Complications Complications: No Admit VTE Documentation VTE Mechan Device Prophylaxis: None Reason prophylaxis not ordered: Treatment Not Indicated
== END 2024-04-17 14:55 | disposition home or self-care (01) ==
LOC: SDC 11:31 → AC 11:32
PROVIDERS: PCP Family Medicine; Referring Provider Plastic Surgery; Visit Provider Plastic Surgery
PROC: (CPT 11302; principal; 2024-04-17 12:45)
DX: D48.5 Neoplasm of uncertain behavior of skin (principal); L82.1 Other seborrheic keratosis; Z79.899 Other long term (current) drug therapy
CPT/HCPCS: 11302; 11301; 88305